=== PATIENT | female | born 1930 | race Caucasian/White ===

== ENCOUNTER → 2016-11-13 | Outpatient (REF) | payer MEDICARE, BC, OTHER ==
[~2016-11-13] MED LIST: ACET-654 PO; ACET650S3 PR; ACET65SU PR; ACET65TA OR; ALBU17IN2 IN; AMBI5TAB OR; ASPI1TAB6 PO; BISA10SU4 PR; BISA5TA OR; COLA100C2 OR; COUM1TAB19 PO; COUM2.5T11 PO; COUM2TAB10 PO; CRANBERRY PO; ENOX40SY SC; ENSULIQ2 PO; FLEETS ENEMA PR; FURO40TA2 PO; GLUC500T3 OR; GLUCTAB6 PO; Glucosamine Sulfate PO; IBUP600T OR; LACTAID PO; LASI20TA PO; MILKSUS OR; MIRALEX PO; MOM30SS PO; MOTR200T4 PO; MULTCAP PO; NAPR375T PO; OCEA0.654; POTA20TA4 PO; SENN8.6T63 PO; TETR250C OR; TUMS500C OR; VENTAER IN; VITA-121 PO; VITA200C OR; VITA500T OR; VITA50TA12 OR; VITAMIN D50000 UNT OR; VITAMIN D50000 UNT PO; WARF05TA PO; ZITH500T OR; [UNRECOGNIZED DRUG - REMARK] PO; fergon PO; vitamin B6 PO
[2016-11-13 16:53] LABS: PERCENT SATURATION 12.3 % (13.2-37.4)
== END ==
LOC: M LAB REF 16:24
PROVIDERS: ATTEND Internal Medicine
DX: D64.9 Anemia, unspecified (principal)

== ENCOUNTER → 2016-12-25 | Outpatient (REF) | payer MEDICARE, OTHER ==
[2016-12-25 19:34] LABS: PERCENT SATURATION 20.2 % (13.2-37.4)
== END ==
LOC: M LAB REF 17:00
PROVIDERS: ATTEND Internal Medicine
DX: D64.9 Anemia, unspecified (principal)

== ENCOUNTER → 2017-03-05 | Outpatient (REF) | payer MEDICARE, OTHER ==
[~2017-03-05] MED LIST changes: -ACET-654 PO; +ACET1TAB17 PO; -COUM2.5T11 PO; +COUM2.5T17 PO; -COUM2TAB10 PO; +COUM2TAB22 PO; +ENSULIQ10 PO; -ENSULIQ2 PO
[2017-03-05 19:23] LABS: PERCENT SATURATION 10.4 % (13.2-37.4)
== END ==
LOC: M LAB REF 16:56
PROVIDERS: ATTEND Internal Medicine
DX: D50.9 Iron deficiency anemia, unspecified (principal)

== ENCOUNTER → 2017-07-09 | Outpatient (REF) | payer MEDICARE, OTHER ==
[2017-07-09 19:10] LABS: PERCENT SATURATION 6.6 % (13.2-45.0)
== END ==
LOC: M LAB REF 17:41
PROVIDERS: ATTEND Internal Medicine
DX: D50.9 Iron deficiency anemia, unspecified (principal)

== ENCOUNTER → 2017-12-23 | Outpatient (REF) | payer MEDICARE, OTHER ==
[2017-12-23 18:03] LABS: FERRITIN 32 NG/ML (8-252); IRON (FE) 59 UG/DL (50-170); PERCENT SATURATION 19.8 % (13.2-45.0); TOTAL IRON BINDING CAPACITY 298 UG/DL (250-450)
== END ==
LOC: M LAB REF 16:52
DX: D50.9 Iron deficiency anemia, unspecified (principal)
CPT/HCPCS: 83550

== ENCOUNTER → 2018-06-17 | Outpatient (REF) | payer MEDICARE, OTHER ==
[2018-06-17 17:24] LABS: IRON (FE) 44 UG/DL (50-170); PERCENT SATURATION 16.7 % (13.2-45.0); TOTAL IRON BINDING CAPACITY 264 UG/DL (250-450)
== END ==
LOC: M LAB REF 16:35
DX: D50.9 Iron deficiency anemia, unspecified (principal)
CPT/HCPCS: 83550

== ENCOUNTER → 2018-12-08 | Outpatient (REF) | payer MEDICARE, OTHER ==
[~2018-12-08] MED LIST changes: -ACET1TAB17 PO; +ACET1TAB55 PO; -ENOX40SY SC; +LOVE1INJ SC
[2018-12-08 19:08] LABS: PERCENT SATURATION 26.9 % (13.2-45.0)
== END ==
LOC: M LAB REF 16:38
PROVIDERS: ATTEND Internal Medicine
DX: D50.9 Iron deficiency anemia, unspecified (principal)

== ENCOUNTER → 2019-01-27 | Outpatient (REF) ==
[2019-01-27 09:32] LABS: HEMATOCRIT 42.5 % (36.0-47.0); HEMOGLOBIN 13.8 g/dl (12.0-15.5); MEAN CORPUSCULAR HEMOGLOBIN 29.6 pg (27.0-33.0); MEAN CORPUSCULAR HGB CONC 32.5 g/dl (32.0-36.5); MEAN CORPUSCULAR VOLUME 91.2 fl (80.0-96.0); PLATELET COUNT, AUTOMATED 276 10^3/uL (150-450); RED BLOOD COUNT 4.66 10^6/uL (4.00-5.40); WHITE BLOOD COUNT 8.1 10^3/uL (4.0-10.0)
[2019-01-27 10:08] LABS: BLOOD UREA NITROGEN 33 MG/DL (7-18); CALCIUM LEVEL 9.2 MG/DL (8.8-10.2); CARBON DIOXIDE LEVEL 28 MEQ/L (21-32); CHLORIDE LEVEL 107 MEQ/L (98-107); CREATININE FOR GFR 0.74 MG/DL (0.55-1.30); GLOMERULAR FILTRATION RATE > 60.0 (>32); GLUCOSE, FASTING 106 MG/DL (70-100); POTASSIUM SERUM 4.6 MEQ/L (3.5-5.1); SODIUM LEVEL 141 MEQ/L (136-145)
== END ==
PROVIDERS: ATTEND Internal Medicine
DX: I50.9 Heart failure, unspecified (principal)

== ENCOUNTER → 2019-03-04 | Outpatient (REF) | payer MEDICARE, OTHER, BC ==
[2019-03-04 09:17] LABS: HEMATOCRIT 40.1 % (36.0-47.0); MEAN CORPUSCULAR HEMOGLOBIN 28.6 pg (27.0-33.0); MEAN CORPUSCULAR HGB CONC 32.4 g/dl (32.0-36.5); MEAN CORPUSCULAR VOLUME 88.3 fl (80.0-96.0); PLATELET COUNT, AUTOMATED 299 10^3/uL (150-450); RED BLOOD COUNT 4.54 10^6/uL (4.00-5.40); WHITE BLOOD COUNT 10.3 10^3/uL (4.0-10.0)
[2019-03-04 09:43] LABS: BLOOD UREA NITROGEN 32 MG/DL (7-18); CALCIUM LEVEL 8.9 MG/DL (8.8-10.2); CARBON DIOXIDE LEVEL 27 MEQ/L (21-32); CHLORIDE LEVEL 104 MEQ/L (98-107); CREATININE FOR GFR 0.73 MG/DL (0.55-1.30); GLOMERULAR FILTRATION RATE > 60.0 (>32); GLUCOSE, FASTING 167 MG/DL (70-100); NT-PRO BNP 1237 PG/ML (<450); POTASSIUM SERUM 4.3 MEQ/L (3.5-5.1); SODIUM LEVEL 139 MEQ/L (136-145)
== END ==
PROVIDERS: ATTEND Internal Medicine
DX: I50.9 Heart failure, unspecified (principal)

== ENCOUNTER → 2019-03-10 | Outpatient (REF) | payer BC, MEDICARE, OTHER ==
[2019-03-10 05:34] LABS: HEMATOCRIT 44.3 % (36.0-47.0); HEMOGLOBIN 14.4 g/dl (12.0-15.5); MEAN CORPUSCULAR HEMOGLOBIN 29.4 pg (27.0-33.0); MEAN CORPUSCULAR HGB CONC 32.5 g/dl (32.0-36.5); MEAN CORPUSCULAR VOLUME 90.4 fl (80.0-96.0); PLATELET COUNT, AUTOMATED 203 10^3/uL (150-450); WHITE BLOOD COUNT 4.1 10^3/uL (4.0-10.0)
[2019-03-10 05:42] LABS: APPEARANCE, URINE MANUAL TURBID (CLEAR); BILIRUBIN, URINE MANUAL NEGATIVE (NEGATIVE); COLOR, URINE MANUAL BROWN (YELLOW); GLUCOSE, URINE (UA) MANUAL NEGATIVE (NEGATIVE); KETONE, URINE MANUAL NEGATIVE (NEGATIVE); PROTEIN, URINE MANUAL 3+ mg/dL (NEGATIVE); SPECIFIC GRAVITY,URINE MANUAL 1.005 (1.002-1.035); UROBILINOGEN, URINE MANUAL NORMAL (NORMAL)
[2019-03-10 05:43] LABS: BLOOD URINE MANUAL POSITIVE (NEGATIVE); LEUKOCYTE ESTERASE, URINE MAN POSITIVE (NEGATIVE); NITRITE, URINE MANUAL NEGATIVE (NEGATIVE)
[2019-03-10 05:44] LABS: TRIPLE PHOSPHATE CRYSTAL,URINE MOD AMOUNT /hpf
[2019-03-10 05:45] LABS: AMORPHOUS SEDIMENT, URINE LARGE AMOUNT (NEGATIVE); BACTERIA, URINE LARGE AMOUNT; RBC, URINE 30-40 /hpf (0-3)
[2019-03-10 05:46] LABS: HYALINE CAST, URINE NONE SEEN /lpf (0-1); SQUAMOUS EPITHELIAL CELL URINE SMALL AMOUNT /hpf (SMALL AMT); WBC, URINE 15-20 /hpf (0-3)
[2019-03-10 05:47] LABS: MUCUS, URINE SMALL AMOUNT (NEGATIVE)
--- NOTE | 2019-03-10 16:21 | REP ---
Clinical: Cough. Comparison: 05/03/2014. Findings: Examination is severely limited by portable technique, underpenetration, and poor inspiratory effort. Basilar atelectasis and possible small pleural effusion cannot be excluded. Impression: Severely limited examination. Cannot exclude basilar atelectasis or small pleural effusion. Electronically Signed by Gómez Cantu MD 03/10/2019 04:13 P
== END ==
LOC: M LAB 00:30
PROVIDERS: ATTEND Internal Medicine
DX: R05 Cough (principal); R50.9 Fever, unspecified; E55.9 Vitamin D deficiency, unspecified; I50.32 Chronic diastolic (congestive) heart failure

== ENCOUNTER → 2019-03-11 | Outpatient (REF) | payer MEDICARE ==
[~2019-03-11] MED LIST changes: +ASPI-161 PO; +BISA10SU27 PR; +CERTTAB8 PO; +CIPR-250 PO; +D200CAP3 PO; +ENSULIQ8 PO; +FERR325T16 PO; +FLAG500T PO; +FLEEENE12 PR; +HM C500T3 PO; +MELA5TAB7 PO; +MILKSUS3 PO; +PANT40TA3 PO; +POTA1TAB14 PO; +SENN1TAB41 PO; +SUCR10SS PO; +VESI5TAB2 PO; +VITA500C PO
[2019-03-11 11:26] LABS: HEMATOCRIT 37.1 % (36.0-47.0); MEAN CORPUSCULAR HEMOGLOBIN 29.4 pg (27.0-33.0); MEAN CORPUSCULAR HGB CONC 32.6 g/dl (32.0-36.5); MEAN CORPUSCULAR VOLUME 90.3 fl (80.0-96.0); PLATELET COUNT, AUTOMATED 214 10^3/uL (150-450); RED BLOOD COUNT 4.11 10^6/uL (4.00-5.40)
[2019-03-11 11:37] LABS: HEMOGLOBIN 12.1 g/dl (12.0-15.5)
[2019-03-11 12:06] LABS: BLOOD UREA NITROGEN 48 MG/DL (7-18); CALCIUM LEVEL 8.5 MG/DL (8.8-10.2); CARBON DIOXIDE LEVEL 27 MEQ/L (21-32); CHLORIDE LEVEL 103 MEQ/L (98-107); CREATININE FOR GFR 0.83 MG/DL (0.55-1.30); GLOMERULAR FILTRATION RATE > 60.0 (>32); GLUCOSE, FASTING 166 MG/DL (70-100); POTASSIUM SERUM 4.3 MEQ/L (3.5-5.1); SODIUM LEVEL 138 MEQ/L (136-145)
== END ==
PROVIDERS: ATTEND Internal Medicine
DX: R50.9 Fever, unspecified (principal)

== ENCOUNTER → 2019-03-12 | Outpatient (REF) | payer MEDICARE ==
[2019-03-12 07:15] LABS: HEMATOCRIT 35.2 % (36.0-47.0); HEMOGLOBIN 11.6 g/dl (12.0-15.5); MEAN CORPUSCULAR HEMOGLOBIN 29.6 pg (27.0-33.0); MEAN CORPUSCULAR VOLUME 89.8 fl (80.0-96.0); PLATELET COUNT, AUTOMATED 227 10^3/uL (150-450); RED BLOOD COUNT 3.92 10^6/uL (4.00-5.40); WHITE BLOOD COUNT 12.6 10^3/uL (4.0-10.0)
[2019-03-12 07:32] LABS: BLOOD UREA NITROGEN 40 MG/DL (7-18); CALCIUM LEVEL 8.7 MG/DL (8.8-10.2); CARBON DIOXIDE LEVEL 30 MEQ/L (21-32); CHLORIDE LEVEL 101 MEQ/L (98-107); CREATININE FOR GFR 0.76 MG/DL (0.55-1.30); GLOMERULAR FILTRATION RATE > 60.0 (>32); GLUCOSE, FASTING 177 MG/DL (70-100); POTASSIUM SERUM 4.3 MEQ/L (3.5-5.1); SODIUM LEVEL 139 MEQ/L (136-145)
== END ==
PROVIDERS: ATTEND Internal Medicine
DX: R50.9 Fever, unspecified (principal)

== ENCOUNTER → 2019-03-13 | Outpatient (REF) | payer MEDICARE ==
[~2019-03-13] MED LIST changes: -ASPI-161 PO; -BISA10SU27 PR; -CERTTAB8 PO; -CIPR-250 PO; -D200CAP3 PO; -ENSULIQ8 PO; -FERR325T16 PO; -FLAG500T PO; -FLEEENE12 PR; -HM C500T3 PO; -MELA5TAB7 PO; -MILKSUS3 PO; -PANT40TA3 PO; -POTA1TAB14 PO; -SENN1TAB41 PO; -SUCR10SS PO; -VESI5TAB2 PO; -VITA500C PO
[2019-03-13 07:13] LABS: HEMOGLOBIN 11.3 g/dl (12.0-15.5); MEAN CORPUSCULAR HEMOGLOBIN 29.1 pg (27.0-33.0); MEAN CORPUSCULAR HGB CONC 32.3 g/dl (32.0-36.5); MEAN CORPUSCULAR VOLUME 90.2 fl (80.0-96.0); PLATELET COUNT, AUTOMATED 246 10^3/uL (150-450); RED BLOOD COUNT 3.88 10^6/uL (4.00-5.40); WHITE BLOOD COUNT 9.5 10^3/uL (4.0-10.0)
[2019-03-13 09:26] LABS: BLOOD UREA NITROGEN 36 MG/DL (7-18); CALCIUM LEVEL 8.4 MG/DL (8.8-10.2); CARBON DIOXIDE LEVEL 31 MEQ/L (21-32); CHLORIDE LEVEL 102 MEQ/L (98-107); CREATININE FOR GFR 0.64 MG/DL (0.55-1.30); GLOMERULAR FILTRATION RATE > 60.0 (>32); GLUCOSE, FASTING 144 MG/DL (70-100); POTASSIUM SERUM 4.1 MEQ/L (3.5-5.1); SODIUM LEVEL 138 MEQ/L (136-145)
== END ==
PROVIDERS: ATTEND Internal Medicine
DX: N39.0 Urinary tract infection, site not specified (principal)

== ENCOUNTER 2019-03-17 22:27 | Inpatient (IN) | payer MEDICARE, BC, OTHER ==
[~2019-03-17] VITALS: Ht 167.6 cm; Wt 79.5 kg
[~2019-03-17 22:27] MED LIST changes: -ASPI-161 PO; -BISA10SU27 PR; -CERTTAB8 PO; -D200CAP3 PO; -ENSULIQ8 PO; -FERR325T16 PO; -FLEEENE12 PR; -HM C500T3 PO; -MELA5TAB7 PO; -MILKSUS3 PO; -POTA1TAB14 PO; -SENN1TAB41 PO; -VESI5TAB2 PO; -VITA500C PO
[2019-03-17] MEDS ORDERED: ENSULIQ8 PO (22:51)
[2019-03-17] MEDS ORDERED: ASPI-161 PO (22:51)
[2019-03-17] MEDS ORDERED: D200CAP3 PO (22:51)
[2019-03-17] MEDS ORDERED: POTA1TAB14 PO (22:51)
[2019-03-17] MEDS ORDERED: VESI5TAB2 PO (22:51)
[2019-03-17] MEDS ORDERED: HM C500T3 PO (22:51)
[2019-03-17] MEDS ORDERED: MELA5TAB7 PO (22:51)
[2019-03-17] MEDS ORDERED: FERR325T16 PO (22:51)
[2019-03-17] MEDS ORDERED: CERTTAB8 PO (22:51)
[2019-03-17] MEDS ORDERED: [UNRECOGNIZED DRUG - CODE] PO (22:51)
[2019-03-17] MEDS ORDERED: BISA10SU27 PR (22:57)
[2019-03-17] MEDS ORDERED: MILKSUS3 PO (22:57)
[2019-03-17] MEDS ORDERED: SENN1TAB41 PO (22:57)
[2019-03-17] MEDS ORDERED: FLEEENE12 PR (22:57)
[2019-03-17 23:18] LABS: BASO # 0.1 10^3/uL (0.0-0.2); BASO % 0.6 % (0.0-1.0); EOS # 0.3 10^3/uL (0.0-0.50); EOS % 2.3 % (0.0-3.0); HEMATOCRIT 39.8 % (36.0-47.0); HEMOGLOBIN 12.8 g/dl (12.0-15.5); LYMPH # 1.6 10^3/uL (1.5-4.5); MEAN CORPUSCULAR HEMOGLOBIN 28.8 pg (27.0-33.0); MEAN CORPUSCULAR HGB CONC 32.2 g/dl (32.0-36.5); MEAN CORPUSCULAR VOLUME 89.6 fl (80.0-96.0); MONO % 7.2 % (0.0-5.0); NEUTROPHILS # 9.7 10^3/uL (1.8-7.7); NEUTROPHILS % 73.3 % (36.0-66.0); PLATELET COUNT, AUTOMATED 406 10^3/uL (150-450); RED BLOOD COUNT 4.44 10^6/uL (4.00-5.40); WHITE BLOOD COUNT 13.3 10^3/uL (4.0-10.0)
[2019-03-17 23:36] LABS: ALBUMIN 2.4 GM/DL (3.2-5.2); ALT/SGPT 17 U/L (12-78); BILIRUBIN,DIRECT 0.1 MG/DL (0.0-0.2); BILIRUBIN,TOTAL 0.3 MG/DL (0.2-1.0); BLOOD UREA NITROGEN 31 MG/DL (7-18); CALCIUM LEVEL 9.2 MG/DL (8.8-10.2); CARBON DIOXIDE LEVEL 34 MEQ/L (21-32); CHLORIDE LEVEL 102 MEQ/L (98-107); CREATININE FOR GFR 0.72 MG/DL (0.55-1.30); GLOMERULAR FILTRATION RATE > 60.0 (>32); GLUCOSE, FASTING 126 MG/DL (70-100); POTASSIUM SERUM 4.3 MEQ/L (3.5-5.1); SODIUM LEVEL 140 MEQ/L (136-145); TOTAL PROTEIN 6.5 GM/DL (6.4-8.2)
[2019-03-17 23:37] LABS: LIPASE 135 U/L (73-393)
[2019-03-18] MEDS ORDERED: NS 500 ML IV ONE (00:15)
[2019-03-18 00:24] LABS: INR 1.06; PROTHROMBIN TIME 13.5 SECONDS (11.8-14.0)
[2019-03-18] MEDS ORDERED: BISACODYL 10 MG SUPP PR PRN (02:30)
[2019-03-18] MEDS ORDERED: ACETAMINOPHEN 325 MG TAB PO PRN (02:30)
--- NOTE | 2019-03-18 02:57 | HPEPDOC ---
General Date of Admission Mar 18, 2019 at 02:26 Date of Service: Mar 18, 2019 Chief Complaint The patient is a 88-year-old female admitted with a reason for visit of Rectal Bleeding. 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 Pt was found to have bright red blood per rectum when being transferred. Pt apparently was treated for uti earlier this week. Otherwise pt is asymptomatic. No sob, dizziness, n/v, or abd pain. Full ROS was performed and negative except as above Home Medications Scheduled Aspirin (Aspirin EC) 81 Mg Tablet.dr, 81 MG PO DAILY, (Reported) Cholecalciferol (Vitamin D3) (Vitamin D3) 2,000 Unit Capsule, 2,000 UNIT PO Q2D, (Reported) Cranberry Fruit Extract (Cranberry) 500 Mg Tablet, 2,000 MG PO DAILY, (Reported) Ferrous Gluconate (Ferrous Gluconate) 324 Mg Tablet, 324 MG PO DAILY, (Reported) Furosemide (Furosemide) 40 Mg Tab, 40 MG PO DAILY, (Reported) Lactose-Reduced Food (Ensure Liquid) 237 Ml Liquid, 237 ML PO DAILY, (Reported) TAKES AT 1200 Melatonin (Melatonin) 5 Mg Tablet, 5 MG PO QHS, (Reported) Multivit-Min/FA/Lycopen/Lutein (Certavite Sr-Antioxidant Tab) 1 Each Tablet, 1 TAB PO DAILY, (Reported) Potassium Chloride (Potassium Chloride) 20 Meq Tablet.er, 20 MEQ PO DAILY, (Reported) Sennosides/Docusate Sodium (Senna-S Tablet) 1 Each Tablet, 1 TAB PO QHS, (Reported) Solifenacin Succinate (Vesicare) 5 Mg Tablet, 5 MG PO DAILY, (Reported) Scheduled PRN Acetaminophen (Acetaminophen) 325 Mg Tab, 650 MG PO Q4HP PRN for PAIN OR FEVER, (Reported) Bisacodyl (Bisacodyl) 10 Mg Supp.rect, 10 MG OR DAILY PRN for CONSTIPATION, (Reported) Magnesium Hydroxide (Milk of Magnesia) 400 Mg/5 Ml Oral.susp, 2,400 MG PO DAILY PRN for CONSTIPATION, (Reported) Sodium Phosphate,[place]-Dibasic (Fleet Enema) 133 Ml Enema, 1 PABLO OR DAILY PRN for CONSTIPATION, (Reported) Allergies Coded Allergies: Penicillins (Verified Allergy, Intermediate, Hives and Rash, 03/17/19) Sulfa (Sulfonamide Antibiotics) (Verified Allergy, Intermediate, Rash and Hives, 03/17/19) morphine (Verified Allergy, Unknown, Nausea, 03/17/19) Past Medical History Medical History pe, mi, guillan barre, kyphosis Family History Significant Family History: No pertinent family hx Social History * Smoker: former Smoker A-FIB/CHADSVASC A-FIB History Current/History of A-Fib/PAF?: No Current PO Anticoag Therapy: No Age/Risk Factor Scoring CHADSVASC: CHADSVASC Response (Comments) Value Age Risk Factor Age >/= 75 years old 2 Gender Risk Factor Female 1 Hx of CHF No 0 Hx of HTN No 0 Hx of Stroke/TIA/or VTE No 0 Hx of Diabetes No 0 Hx of Vascular Disease No 0 Total 3 Treatment Treatment ordered: NONE Reason Anticoagulant not given: Not indicated/[id number] Physical Examination General Exam: Positive: Alert, Cooperative, No Acute Distress Eye Exam: Positive: PERRLA, Conjunctiva & lids normal, EOMI; Negative: Sclera icteric ENT Exam: Positive: Atraumatic, Mucous membr. moist/pink, Pharynx Normal Neck Exam: Positive: Supple; Negative: JVD, thyromegaly Chest Exam: Positive: Clear to auscultation, Normal air movement Heart Exam: Positive: Tachycardic, Regular Rhythm, Normal S1, Normal S2; Negative: Murmurs, Rubs Telemetry: Positive: Sinus, Tachycardia Abdomen Exam: Positive: Normal bowel sounds, Soft; Negative: Tenderness, Hepatospenomegaly Extremity Exam: Positive: Normal pulses; Negative: Clubbing, Cyanosis, Edema Skin Exam: Positive: Nl turgor and temperature; Negative: Breakdown, Lesion Neuro Exam: Positive: Normal Gait, Normal Speech, Cranial Nerves 3-12 NL Psych Exam: Positive: Mental status NL, Mood NL, Oriented x 3 Vital Signs Vital Signs Date Time Temp Pulse Resp B/P (MAP) Pulse Ox O2 Delivery O2 Flow Rate FiO2 03/18/19 01:15 96.9 100 18 123/62 (82) 91 Room Air Laboratory Data Labs 24H Laboratory Tests 2 03/17/19 23:01: Immature Granulocyte % (Auto) 4.6H, White Blood Count 13.3H, Red Blood Count 4.44, Hemoglobin 12.8, Hematocrit 39.8, Mean Corpuscular Volume 89.6, Mean Corpuscular Hemoglobin 28.8, Mean Corpuscular Hemoglobin Concent 32.2, Red Cell Distribution Width 14.6H, Platelet Count 406, Neutrophils (%) (Auto) 73.3H, Lymphocytes (%) (Auto) 12.0L, Monocytes (%) (Auto) 7.2H, Eosinophils (%) (Auto) 2.3, Basophils (%) (Auto) 0.6, Neutrophils # (Auto) 9.7H, Lymphocytes # (Auto) 1.6, Monocytes # (Auto) 1.0H, Eosinophils # (Auto) 0.3, Basophils # (Auto) 0.1, Nucleated Red Blood Cells % (auto) 0.0, Anion Gap 4L, Glomerular Filtration Rate > 60.0, Calcium Level 9.2, Aspartate Amino Transf (AST/SGOT) 18, Alanine Aminotransferase (ALT/SGPT) 17, Alkaline Phosphatase 87, Total Bilirubin 0.3, Direct Bilirubin 0.1, Total Protein 6.5, Albumin 2.4L, Albumin/Globulin Ratio 0.59L, Lipase 135 03/18/19 00:14: Prothrombin Time 13.5, Prothromb Time International Ratio 1.06, Activated Partia l Thromboplast Time 27.0 CBC/BMP Laboratory Tests 03/17/19 23:01 Red Blood Count 4.44, Mean Corpuscular Volume 89.6, Mean Corpuscular Hemoglobin 28.8, Mean Corpuscular Hemoglobin Concent 32.2, Red Cell Distribution Width 14.6 H, Neutrophils (%) (Auto) 73.3 H, Lymphocytes (%) (Auto) 12.0 L, Monocytes (%) (Auto) 7.2 H, Eosinophils (%) (Auto) 2.3, Basophils (%) (Auto) 0.6, Neutrophils # (Auto) 9.7 H, Lymphocytes # (Auto) 1.6, Monocytes # (Auto) 1.0 H, Eosinophils # (Auto) 0.3, Basophils # (Auto) 0.1 Assessment/Plan 88f p/w BRBPR possible gi bleeding not currently anemic trend h/h hold asa gi eval in am monitor hemodynamics npo dchf euvolemic hold lasix Plan / VTE VTE Prophylaxis Ordered?: Yes VTE Exclusion Mechanical Proph: N/A:VTE Prophy Ordered VTE Exclusion Pharmacological: Hemorrhage THOMPSON MURRY MD Mar 18, 2019 02:57
[2019-03-18] MEDS: D5W/0.45% SODIUM CHLORIDE 1,000 ML IV SCH ×2 (03:51→18:28)
[2019-03-18 08:42] LABS: HEMATOCRIT 34.4 % (36.0-47.0); HEMOGLOBIN 11.2 g/dl (12.0-15.5); MEAN CORPUSCULAR HEMOGLOBIN 29.6 pg (27.0-33.0); MEAN CORPUSCULAR HGB CONC 32.6 g/dl (32.0-36.5); PLATELET COUNT, AUTOMATED 346 10^3/uL (150-450); RED BLOOD COUNT 3.78 10^6/uL (4.00-5.40); WHITE BLOOD COUNT 11.2 10^3/uL (4.0-10.0)
[2019-03-18 09:21] LABS: ALBUMIN 1.9 GM/DL (3.2-5.2); ALT/SGPT 13 U/L (12-78); BILIRUBIN,TOTAL 0.4 MG/DL (0.2-1.0); BLOOD UREA NITROGEN 27 MG/DL (7-18); CALCIUM LEVEL 8.2 MG/DL (8.8-10.2); CARBON DIOXIDE LEVEL 28 MEQ/L (21-32); CHLORIDE LEVEL 105 MEQ/L (98-107); CREATININE FOR GFR 0.54 MG/DL (0.55-1.30); GLOMERULAR FILTRATION RATE > 60.0 (>32); GLUCOSE, FASTING 169 MG/DL (70-100); POTASSIUM SERUM 3.8 MEQ/L (3.5-5.1); SODIUM LEVEL 139 MEQ/L (136-145); TOTAL PROTEIN 5.8 GM/DL (6.4-8.2)
[2019-03-18] MEDS ORDERED: ISOVUE-370 76% 100ML VIAL (Q9967) As Ordered ONE (09:33)
--- NOTE | 2019-03-18 09:49 | REP ---
CT ABDOMEN AND PELVIS WITHOUT CONTRAST: CT abdomen and pelvis performed without oral or IV contrast. Sagittal and coronal reconstruction images are performed. There are mild patchy bibasilar consolidative opacities compatible with mild bibasilar atelectasis/infiltrate. There is a moderate hiatal hernia. Liver, spleen, adrenals, and pancreas are grossly unremarkable. There is a punctate calcification in the left renal collecting system inferiorly. There is no hydroureteronephrosis. There is moderate atherosclerotic calcification of the abdominal aorta without aneurysm. The is no adenopathy. There is no free air or free fluid. There is extensive sigmoid diverticulosis. There may be some degree of thickening of the distal rectosigmoid colon, with mild surrounding perirectal edema predominantly posteriorly anterior to the sacrum. There is no other area of definite bowel wall thickening. No pelvic mass is seen. There are small diverticula of the bladder. There also appear to be a few tiny calculi in the dependent portion of the urinary bladder. There are degenerative changes of the spine. IMPRESSION: Mild patchy bibasilar atelectasis/infiltrate. Moderate hiatal hernia. Possible mild thickening of a portion of the distal rectosigmoid colon with adjacent edema in the perirectal fat posteriorly, nonspecific and possibly due to an area of colitis. Early neoplasm cannot be excluded. No free air or free fluid. Otherwise, the sigmoid colon demonstrates multiple innumerable diverticula. Electronically Signed by Siddharth Perez MD 03/19/2019 12:28 A
--- NOTE | 2019-03-18 10:21 | REP ---
CT ANGIOGRAM OF THE CHEST: TECHNIQUE: Axial contrast enhanced images from the thoracic inlet to the upper abdomen using 100 mL Isovue 370 intravenous contrast material with multiplanar reformations. Pulmonary artery branches supplying the left upper and lower lobes demonstrate filling defects compatible with pulmonary emboli. Pulmonary emboli are also seen in pulmonary arterial branches supplying the right lower lobe. There is atherosclerotic calcification of the thoracic aorta without aneurysm. There is no cardiomegaly. There is no pleural or pericardial effusion. I do not see significant mediastinal, hilar, or chest wall lymphadenopathy. There is a moderate hiatal hernia. The lungs show dependent patchy atelectasis/infiltrate inferiorly bilaterally. There are degenerative changes of the spine. IMPRESSION: Bilateral pulmonary emboli. Bibasilar atelectasis/infiltrate inferiorly in the lung bases. Electronically Signed by Siddharth Perez MD 03/19/2019 12:29 A
[2019-03-18] MEDS: FERROUS GLUCONATE 324 MG TAB PO SCH (10:36)
[2019-03-18] MEDS ORDERED: HEPARIN DRIP 25,000 UNITS in IV 1 EA IV SCH (11:02)
[2019-03-18] MEDS ORDERED: HEPARIN SOD (PORCINE) 5000 UNITS/ML VIAL IV PRN (11:15)
--- NOTE | 2019-03-18 12:00 | CR.PDOC ---
General Date of Consultation: Mar 18, 2019 Referring Provider: BREANNA GUADALUPE MD Consultation Primary Physician/hospitalist: Dr. 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 The patient herself says that she does not have the ability to see her stool so she is unsure how long this has occurred for, however she thinks [facility] at the jail would have told her if it did prior to this. She denies any nausea, vomiting, no abdominal discomfort, she reports normal bowel movements, no diarrhea or constipation to her knowledge, she states she feels well albeit a little fatigued. She denies early satiety, has never experienced food or liquid becoming stuck in her throat or chest, she has no sick contacts she knows of. She denies any changes to her weight and states her appetite has been good. ALLERGIES: Please see below. HOME MEDICATIONS: Please see below. ROS: GI: As stated above in HPI CVS: NO chest pain nor syncope nor palpitations RS: No SOB or wheezing nor cough : Denies hematuria, no burning sensation when she urinates ENT: No jaundice nor photophobia Home medications reviewed: she has history of PE in the past, 2013, and was on anticoagulation at that time but later stopped.. 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) SURGICAL HISTORY: bunion and left lower extremity orthopedic surgery many years ago She has not had any prior endoscopies or colonoscopies SOCIAL HISTORY: [facility] resident, denies smoking, IVDU or ETOH use Exam: Vitals: reviewed General: AAOx3, pleasant and conversant, NAD HEENT: No pallor and no icterus, no cervical lymph nodes Chest: CTA b/l, no rales, rhonchi or wheezing appreciated Cardiovascular: Normal s1 and s2, no murmurs, rubs or gallops Abdomen: NABSX4, soft, tender in LLQ to palpation, no rebound ridgity or guarding, no hepatosplenomegaly appreciated, does not appear distended PROPERTY CLAIM REP: No focal motor or sensory deficits appreciated LABORATORY DATA and IMAGING reviewed Noted bilateral new PE on CT angiography. Impression: 88 Year old female patient with multiple medical comorbidities, with episode of rectal bleeding and noted to have Acute bilateral pulmonary embolism, with stable H/H, and and not requiring blood transfusion at this point in time, CT ab/pelvis did show thickening in the distal rectosigmoid colon with edema, possibly suggesting colitis although early neoplasm could not be ruled out and many sigmoid colonic diverticula --DDx-- Needs further evaluation for etiology of Gi bleeding. Recommendations: -- In view of acute bilateral PE and due to patient multiple comobidities patient will not be a candidate for anesthesia for any endoscopic procedures. -- Discussed the risks, benefits and alternative of endoscopic work up at this time. -- Patient verbalized undeerstanding and did nt want to pursue endoscopic procedures. -- Anticoagulation based on the risks and benefits at this time -- Patient is also being planned for IVC filter by Vascular surgery. -- If patient has overt active GI bleeding, please consider IR guided embolization. -- Elective Colonoscopy after acute and active issues are stabilized. -- Recall GI if any changein status. Plan of care discussed with patient and primary team. Vital Signs/I&O Vital Signs Date Time Temp Pulse Resp B/P (MAP) Pulse Ox O2 Delivery O2 Flow Rate FiO2 03/18/19 07:46 96.1 03/18/19 07:00 89 120/61 (80) 91 Room Air 03/18/19 05:45 18 I&O- Last 24 Hours up to 6 AM 03/18/19 05:59 Intake Total 500 ml Balance 500 ml Laboratory Data Labs 24H Laboratory Tests 2 03/17/19 23:01: Immature Granulocyte % (Auto) 4.6H, White Blood Count 13.3H, Red Blood Count 4.44, Hemoglobin 12.8, Hematocrit 39.8, Mean Corpuscular Volume 89.6, Mean Corpuscular Hemoglobin 28.8, Mean Corpuscular Hemoglobin Concent 32.2, Red Cell Distribution Width 14.6H, Platelet Count 406, Neutrophils (%) (Auto) 73.3H, Lymphocytes (%) (Auto) 12.0L, Monocytes (%) (Auto) 7.2H, Eosinophils (%) (Auto) 2.3, Basophils (%) (Auto) 0.6, Neutrophils # (Auto) 9.7H, Lymphocytes # (Auto) 1.6, Monocytes # (Auto) 1.0H, Eosinophils # (Auto) 0.3, Basophils # (Auto) 0.1, Nucleated Red Blood Cells % (auto) 0.0, Anion Gap 4L, Glomerular Filtration Rate > 60.0, Calcium Level 9.2, Aspartate Amino Transf (AST/SGOT) 18, Alanine Aminotransferase (ALT/SGPT) 17, Alkaline Phosphatase 87, Total Bilirubin 0.3, Direct Bilirubin 0.1, Total Protein 6.5, Albumin 2.4L, Albumin/Globulin Ratio 0.59L, Lipase 135 03/18/19 00:14: Prothrombin Time 13.5, Prothromb Time International Ratio 1.06, Activated Partial Thromboplast Time 27.0 03/18/19 08:32: Nucleated Red Blood Cells % (auto) 0.0, Anion Gap 6L, Glomerular Filtration Rate > 60.0, Calcium Level 8.2L, Aspartate Amino Transf (AST/SGOT) 15, Alanine Aminotransferase (ALT/SGPT) 13, Alkaline Phosphatase 62, Total Bilirubin 0.4, Total Protein 5.8L, Albumin 1.9#L, Albumin/Globulin Ratio 0.49L, Blood Urea Nitrogen 27H, Creatinine 0.54L, Sodium Level 139, Potassium Level 3.8, Chloride Level 105, Carbon Dioxide Level 28 CBC/BMP Laboratory Tests 03/17/19 23:01 Red Blood Count 4.44, Mean Corpuscular Volume 89.6, Mean Corpuscular Hemoglobin 28.8, Mean Corpuscular Hemoglobin Concent 32.2, Red Cell Distribution Width 14.6 H, Neutrophils (%) (Auto) 73.3 H, Lymphocytes (%) (Auto) 12.0 L, Monocytes (%) (Auto) 7.2 H, Eosinophils (%) (Auto) 2.3, Basophils (%) (Auto) 0.6, Neutrophils # (Auto) 9.7 H, Lymphocytes # (Auto) 1.6, Monocytes # (Auto) 1.0 H, Eosinophils # (Auto) 0.3, Basophils # (Auto) 0.1 03/18/19 08:32 Red Blood Count 3.78 L, Mean Corpuscular Volume 91.0, Mean Corpuscular Hemoglobin 29.6, Mean Corpuscular Hemoglobin Concent 32.6, Red Cell Distribution Width 14.6 H, Calcium Level 8.2 L, Aspartate Amino Transf (AST/SGOT) 15, Alanine Aminotransferase (ALT/SGPT) 13, Alkaline Phosphatase 62, Total Bilirubin 0.4, Total Protein 5.8 L, Albumin 1.9 #L Allergies Coded Allergies: Penicillins (Verified Allergy, Intermediate, Hives and Rash, 03/17/19) Sulfa (Sulfonamide Antibiotics) (Verified Allergy, Intermediate, Rash and Hives, 03/17/19) morphine (Verified Allergy, Unknown, Nausea, 03/17/19) Home Medications Scheduled Aspirin (Aspirin EC) 81 Mg Tablet.dr, 81 MG PO DAILY, (Reported) Cholecalciferol (Vitamin D3) (Vitamin D3) 2,000 Unit Capsule, 2,000 UNIT PO Q2D, (Reported) Cranberry Fruit Extract (Cranberry) 500 Mg Tablet, 2,000 MG PO DAILY, (Reported) Ferrous Gluconate (Ferrous Gluconate) 324 Mg Tablet, 324 MG PO DAILY, (Reported) Furosemide (Furosemide) 40 Mg Tab, 40 MG PO DAILY, (Reported) Lactose-Reduced Food (Ensure Liquid) 237 Ml Liquid, 237 ML PO DAILY, (Reported) TAKES AT 1200 Melatonin (Melatonin) 5 Mg Tablet, 5 MG PO QHS, (Reported) Multivit-Min/FA/Lycopen/Lutein (Certavite Sr-Antioxidant Tab) 1 Each Tablet, 1 TAB PO DAILY, (Reported) Potassium Chloride (Potassium Chloride) 20 Meq Tablet.er, 20 MEQ PO DAILY, (Reported) Sennosides/Docusate Sodium (Senna-S Tablet) 1 Each Tablet, 1 TAB PO QHS, (Reported) Solifenacin Succinate (Vesicare) 5 Mg Tablet, 5 MG PO DAILY, (Reported) Scheduled PRN Acetaminophen (Acetaminophen) 325 Mg Tab, 650 MG PO Q4HP PRN for PAIN OR FEVER, (Reported) Bisacodyl (Bisacodyl) 10 Mg Supp.rect, 10 MG [place] DAILY PRN for CONSTIPATION, (Reported) Magnesium Hydroxide (Milk of Magnesia) 400 Mg/5 Ml Oral.susp, 2,400 MG PO DAILY PRN for CONSTIPATION, (Reported) Sodium Phosphate,[place]-Dibasic (Fleet Enema) 133 Ml Enema, 1 PABLO [place] DAILY PRN for CONSTIPATION, (Reported) GME ATTESTATION GME ATTESTATION My faculty preceptor for this patient encounter was physically present during the encounter and was fully available. All aspects of the patient interview, examination, medical decision making process, and medical care plan development were reviewed and approved by the faculty preceptor. The faculty preceptor is aware and concurs with the plan as stated in the body of this note and will attest to such by his/her cosignature. BRAYAN JONES DO Mar 18, 2019 12:00 ISAIAH GAN MD Mar 19, 2019 17:26
--- NOTE | 2019-03-18 12:09 | CR.PDOC ---
General Date of Consultation: Mar 18, [address] Parra HPI: 88 year old F with a past medical history significant for pulmonary embolism 2013, currently on aspirin 81 mg daily admitted 03/18/19 for rectal bleeding as per hospitalist service. The patient's daughter is at the bedside and provides additional history. The patient was noted to have BRBPR yesterday in her brief and was sent to the emergency department. Gastroenterology consultation pending. She reports that in 2013 the patient had a lower extremity fracture status post repair went to [facility] for rehabilitation in 2 weeks later was diagno sed with pulmonary embolism. The patient was initially placed on Coumadin later changed to Eliquis. Anticoagulation was stopped 2014. The patient had ultrasound completed of left lower extremity 03/17/19 indicating DVT with CTA chest 03/18/19 indicating bilateral PE. Vascular surgery is consulted for consideration of IVC filter. The patient is a resident of [facility]. 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 She was apparently recently treated for UTI. Her daughter states that she intermittently has shortness of breath. Denies any fevers, chills, Headache, Chest Pain, palpitations, abdominal pain, N/V/D or changes in bowel habits. 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 Iron deficiency Lactose intolerance OAB Chronic constipation PSHX: Right knee arthroplasty Left tib-fib ORIF Cystoscopy SOCHX: Tobacco use: Former smoker ETOH: Denies FAMHX: Denies family history of clotting disorder ROS: 10 point review of system reviewed and unremarkable other than noted in HPI. PE: GEN: 88yoF appears stated age. Well-nourished, well developed. No acute distress currently. Alert and oriented x 3. Pleasant, interactive. HEENT: Normocephalic, atraumatic. No facial asymmetry. Moist mucous membranes. CHEST: Regular rate and rhythm, +S1, +S2 LUNGS: Decreased breath sounds but clear bilaterally. No wheezes, rales, or rhonchi. Breathing appears symmetric and easy. ABD: Round, soft, non-tender, non-distended. +Bowel sounds throughout. EXT: Bilateral feet are warm to touch. Good capillary refill. No wounds on the feet however there is a wound noted on the pretibial area of the left lower extremity which the daughter states occurred from bumping her chair. Lower extremity venous ultrasound Nonocclusive thrombus left common femoral, superficial femoral, and popliteal veins. Electronically Signed by Siddharth Perez MD 03/18/2019 10:51 A CTA chest Bilateral pulmonary emboli. Bibasilar atelectasis/infiltrate inferiorly in the lung bases. Unreviewed DD: Siddharth Preez MD, MD 03/18/19 1004 A&P: 1. Left lower extremity nonocclusive DVT with bilateral PE. Pt with h/o previous DVT 2013. PT/PTT 03/18/19. Add Hypercoagulable GAYTAN. The patient is also currently being treated for possible GI bleeding. G astroenterology consultation pending. 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 The patient is unable to be placed on anticoagulant at this time. The patient is reviewed and examined as per Dr. Parra. Plan is for IVC filter placement 03/18/19. Vital Signs/I&O Vital Signs Date Time Temp Pulse Resp B/P (MAP) Pulse Ox O2 Delivery O2 Flow Rate FiO2 03/18/19 07:46 96.1 03/18/19 07:00 89 120/61 (80) 91 Room Air 03/18/19 05:45 18 I&O- Last 24 Hours up to 6 AM 03/18/19 06:00 Intake Total 500 ml Balance 500 ml Laboratory Data Labs 24H Laboratory Tests 2 03/17/19 23:01: Immature Granulocyte % (Auto) 4.6H, White Blood Count 13.3H, Red Blood Count 4.44, Hemoglobin 12.8, Hematocrit 39.8, Mean Corpuscular Volume 89.6, Mean Corpuscular Hemoglobin 28.8, Mean Corpuscular Hemoglobin Concent 32.2, Red Cell Distribution Width 14.6H, Platelet Count 406, Neutrophils (%) (Auto) 73.3H, Lymphocytes (%) (Auto) 12.0L, Monocytes (%) (Auto) 7.2H, Eosinophils (%) (Auto) 2.3, Basophils (%) (Auto) 0.6, Neutrophils # (Auto) 9.7H, Lymphocytes # (Auto) 1.6, Monocytes # (Auto) 1.0H, Eosinophils # (Auto) 0.3, Basophils # (Auto) 0.1, Nucleated Red Blood Cells % (auto) 0.0, Anion Gap 4L, Glomerular Filtration Rate > 60.0, Calcium Level 9.2, Aspartate Amino Transf (AST/SGOT) 18, Alanine Aminotransferase (ALT/SGPT) 17, Alkaline Phosphatase 87, Total Bilirubin 0.3, Direct Bilirubin 0.1, Total Protein 6.5, Albumin 2.4L, Albumin/Globulin Ratio 0.59L, Lipase 135 03/18/19 00:14: Prothrombin Time 13.5, Prothromb Time International Ratio 1.06, Activated Partial Thromboplast Time 27.0 03/18/19 08:32: Nucleated Red Blood Cells % (auto) 0.0, Anion Gap 6L, Glomerular Filtration Rate > 60.0, Calcium Level 8.2L, Aspartate Amino Transf (AST/SGOT) 15, Alanine Aminotransferase (ALT/SGPT) 13, Alkaline Phosphatase 62, Total Bilirubin 0.4, Total Protein 5.8L, Albumin 1.9#L, Albumin/Globulin Ratio 0.49L, Blood Urea Nitrogen 27H, Creatinine 0.54L, Sodium Level 139, Potassium Level 3.8, Chloride Level 105, Carbon Dioxide Level 28 CBC/BMP Laboratory Tests 03/17/19 23:01 Red Blood Count 4.44, Mean Corpuscular Volume 89.6, Mean Corpuscular Hemoglobin 28.8, Mean Corpuscular Hemoglobin Concent 32.2, Red Cell Distribution Width 14.6 H, Neutrophils (%) (Auto) 73.3 H, Lymphocytes (%) (Auto) 12.0 L, Monocytes (%) (Auto) 7.2 H, Eosinophils (%) (Auto) 2.3, Basophils (%) (Auto) 0.6, Neutrophils # (Auto) 9.7 H, Lymphocytes # (Auto) 1.6, Monocytes # (Auto) 1.0 H, Eosinophils # (Auto) 0.3, Basophils # (Auto) 0.1 03/18/19 08:32 Red Blood Count 3.78 L, Mean Corpuscular Volume 91.0, Mean Corpuscular Hemoglobin 29.6, Mean Corpuscular Hemoglobin Concent 32.6, Red Cell Distribution Width 14.6 H, Calcium Level 8.2 L, Aspartate Amino Transf (AST/SGOT) 15, Alanine Aminotransferase (ALT/SGPT) 13, Alkaline Phosphatase 62, Total Bilirubin 0.4, To xiomara Protein 5.8 L, Albumin 1.9 #L Allergies Coded Allergies: Penicillins (Verified Allergy, Intermediate, Hives and Rash, 03/17/19) Sulfa (Sulfonamide Antibiotics) (Verified Allergy, Intermediate, Rash and Hives, 03/17/19) morphine (Verified Allergy, Unknown, Nausea, 03/17/19) Home Medications Scheduled Aspirin (Aspirin EC) 81 Mg Tablet.dr, 81 MG PO DAILY, (Reported) Cholecalciferol (Vitamin D3) (Vitamin D3) 2,000 Unit Capsule, 2,000 UNIT PO Q2D, (Reported) Cranberry Fruit Extract (Cranberry) 500 Mg Tablet, 2,000 MG PO DAILY, (Reported) Ferrous Gluconate (Ferrous Gluconate) 324 Mg Tablet, 324 MG PO DAILY, (Reported) Furosemide (Furosemide) 40 Mg Tab, 40 MG PO DAILY, (Reported) Lactose-Reduced Food (Ensure Liquid) 237 Ml Liquid, 237 ML PO DAILY, (Reported) TAKES AT 1200 Melatonin (Melatonin) 5 Mg Tablet, 5 MG PO QHS, (Reported) Multivit-Min/FA/Lycopen/Lutein (Certavite Sr-Antioxidant Tab) 1 Each Tablet, 1 TAB PO DAILY, (Reported) Potassium Chloride (Potassium Chloride) 20 Meq Tablet.er, 20 MEQ PO DAILY, (Reported) Sennosides/Docusate Sodium (Senna-S Tablet) 1 Each Tablet, 1 TAB PO QHS, (Rep orted) Solifenacin Succinate (Vesicare) 5 Mg Tablet, 5 MG PO DAILY, (Reported) Scheduled PRN Acetaminophen (Acetaminophen) 325 Mg Tab, 650 MG PO Q4HP PRN for PAIN OR FEVER, (Reported) Bisacodyl (Bisacodyl) 10 Mg Supp.rect, [address] DAILY PRN for CONSTIPATION, (Reported) Magnesium Hydroxide (Milk of Magnesia) 400 Mg/5 Ml Oral.susp, 2,400 MG PO DAILY PRN for CONSTIPATION, (Reported) Sodium Phosphate,Dillon-Dibasic (Fleet Enema) 133 Ml Enema, [address] DAILY PRN for CONSTIPATION, (Reported) Maddie Ansari Mar 18, 2019 11:42
[2019-03-18 12:16] LABS: HEMOGLOBIN 11.4 g/dl (12.0-15.5)
[2019-03-18] MEDS: PANTOPRAZOLE 40MG INJ (PROTONIX) (C9113) IV SCH ×2 (12:55→20:31)
[2019-03-18 14:00] VITALS: BP 109/69
[2019-03-18 18:13] LABS: HEMATOCRIT 35.3 % (36.0-47.0); HEMOGLOBIN 11.3 g/dl (12.0-15.5)
[2019-03-18] MEDS: SENOKOT S TAB PO SCH (20:31)
[2019-03-18 22:00] VITALS: BP 129/73
[2019-03-18 23:49] LABS: HEMATOCRIT 32.5 % (36.0-47.0); HEMOGLOBIN 10.5 g/dl (12.0-15.5)
[2019-03-19 06:00] VITALS: BP 135/70
[2019-03-19 06:28] LABS: HEMATOCRIT 31.1 % (36.0-47.0); HEMOGLOBIN 10.2 g/dl (12.0-15.5)
[2019-03-19 06:49] LABS: ERYTHROCYTE SEDIMENTATION RATE 28 mm/hr (0-42)
[2019-03-19] MEDS: PANTOPRAZOLE 40MG INJ (PROTONIX) (C9113) IV SCH ×2 (08:14→21:19)
[2019-03-19] MEDS: D5W/0.45% SODIUM CHLORIDE 1,000 ML IV SCH ×2 (08:14→21:19)
[2019-03-19] MEDS: FERROUS GLUCONATE 324 MG TAB PO SCH (08:15)
[2019-03-19] MEDS: VITAMIN D 1,000 INTERNATIONAL UNITS TABLET PO SCH (08:15)
[2019-03-19 12:53] LABS: HEMATOCRIT 32.9 % (36.0-47.0); HEMOGLOBIN 10.6 g/dl (12.0-15.5)
--- NOTE | 2019-03-19 13:39 | IPN ---
DATE OF SERVICE: 03/18/2019 The patient was seen with her daughter at the bedside. She complained of rectal bleeding while being changed yesterday. Has denied any lightheadedness, dizziness, shortness of breath, chest pain, pressure, or tightness. Denies any nausea or vomiting. She denies any weight loss, dysphagia, odynophagia, and early satiety. No weight changes. No abdominal pain or prior history of gastrointestinal (GI) bleed. Never had a colonoscopy or esophagogastroduodenoscopy (EGD) in the past. Vital signs: Temperature is 98.3, pulse 95, respiratory rate 16, blood pressure is 120/61. Generally, the patient is awake, alert, oriented to person. She is appropriate in conversing. She has no expressive aphasia. There is no facial asymmetry. No jugular venous distention (JVD). Lungs are diminished but clear. Heart: S1, S2, sinus rhythm. Abdomen is soft, nontender, nondistended. Extremities: She has chronic lower extremity edema with venous ulcers and chronic venous stasis changes. LABORATORY DATA: Have been reviewed. Notable for a hemoglobin of 11.3, hematocrit of 35.3, and albumin of 1.9. Hemoccult stool is positive. Urine culture is pending. IMAGING STUDIES: Venous Doppler of the left lower extremity shows nonocclusive thrombus of left common femoral, superficial femoral, and popliteal vein. CT of the abdomen and pelvis shows mild thickening of the colon distal rectosigmoid area, probably an area of colitis, early neoplasm could not be excluded. Mild patchy bibasilar atelectasis or infiltrate and moderate hiatal hernia. ASSESSMENT AND PLAN: This is an 88-year-old female presented to the emergency room after being found to have bright red blood while being changed at the halfway. She was also found to have a left lower extremity deep venous thrombosis (DVT) currently and cannot be anticoagulated. CT due to complaints of congestion. CT chest was performed, which showed bilateral pulmonary embolism. She did have a prior history of pulmonary embolism (PE) in the past and has refused anticoagulation after completion of 3 months. ACUTE ISSUES: 1. Hematochezia with acute gastrointestinal (GI) bleed and blood loss anemia. She is currently medically stable with vital signs showing systolic pressure of 109-120 systolic. She is not currently requiring any red blood cell transfusion. She is off anticoagulation for DVT and due to active blood loss. 2. Deep venous thrombosis in the left lower extremity due to contraindication for anticoagulation due to acute GI bleed. Dr. Parra of vascular surgery has been consulted for inferior vena cava filter placement. I have discussed with the family that despite the inferior vena cava (IVC) filter placement, she remains susceptible to respiratory distress and failure due to bilateral pulmonary embolism. Once the patient is much more stable, will need a colonoscopy as outpatient. 3. Acute blood loss anemia secondary to active gastrointestinal bleed, most likely for colitis and questionable mass in the colon. The patient will need a colonoscopy. She agrees to do this as outpatient, but due to her advanced age, will defer this decision to the family. Due to the bilateral PE, the patient is not a candidate for EGD or colonoscopy at this time. 4. Acute colitis with hematochezia. Will place on Cipro and Flagyl due to elevated white count despite not having a fever but was hypothermic at 96.1. She has history of PENICILLIN AND SULFA ALLERGY. Therefore, the patient will be placed on Cipro and Flagyl. 5. History of coronary artery disease (CAD)/myocardial infarction (ID). Currently does not have any acute ischemic symptoms. 6. History of Guillain-[place], chronic. 7. History of kyphosis, complicating care and respiratory status. 8. Chronic wheelchair-bound. She is a halfway resident.
[2019-03-19 14:00] VITALS: BP 113/64
[2019-03-19 19:02] LABS: HEMATOCRIT 35.4 % (36.0-47.0); HEMOGLOBIN 11.4 g/dl (12.0-15.5)
[2019-03-19] MEDS: SENOKOT S TAB PO SCH (21:19)
[2019-03-19 22:00] VITALS: BP 128/74
[2019-03-20 00:41] LABS: HEMATOCRIT 30.5 % (36.0-47.0); HEMOGLOBIN 9.8 g/dl (12.0-15.5)
[2019-03-20 06:00] VITALS: BP 128/73
[2019-03-20 06:00] LABS: HEMOGLOBIN 9.7 g/dl (12.0-15.5); MEAN CORPUSCULAR HEMOGLOBIN 28.6 pg (27.0-33.0); MEAN CORPUSCULAR HGB CONC 32.3 g/dl (32.0-36.5); MEAN CORPUSCULAR VOLUME 88.5 fl (80.0-96.0); PLATELET COUNT, AUTOMATED 288 10^3/uL (150-450); RED BLOOD COUNT 3.39 10^6/uL (4.00-5.40); WHITE BLOOD COUNT 10.2 10^3/uL (4.0-10.0)
[2019-03-20 06:23] LABS: BLOOD UREA NITROGEN 13 MG/DL (7-18); CALCIUM LEVEL 7.9 MG/DL (8.8-10.2); CARBON DIOXIDE LEVEL 25 MEQ/L (21-32); CHLORIDE LEVEL 106 MEQ/L (98-107); GLOMERULAR FILTRATION RATE > 60.0 (>32); GLUCOSE, FASTING 135 MG/DL (70-100); POTASSIUM SERUM 3.6 MEQ/L (3.5-5.1); SODIUM LEVEL 138 MEQ/L (136-145)
--- NOTE | 2019-03-20 08:57 | REP ---
PORTABLE CHEST, ONE VIEW: HISTORY: Shortness of breath. COMPARISON: 03/10/2019. Parenchymal densities are present in the lower lobes consistent with atelectasis or infiltrates. The heart is normal in size. The pulmonary vasculature is normal in appearance. A hiatal hernia is present. IMPRESSION: Bibasilar atelectasis or infiltrate. Electronically Signed by Ramesh Alvarez MD 03/20/2019 09:02 A
[2019-03-20] MEDS: PANTOPRAZOLE 40MG INJ (PROTONIX) (C9113) IV SCH ×2 (09:53→19:53)
[2019-03-20] MEDS: FERROUS GLUCONATE 324 MG TAB PO SCH (09:53)
--- NOTE | 2019-03-20 10:20 | IPNPDOC ---
Date Seen The patient was seen on 03/20/19. Progress Note Vascular surgery. Dr. Parra HPI: 88 year old F with a past medical history significant for pulmonary embolism 2013, currently on aspirin 81 mg daily admitted 03/18/19 for BRBPR as per hospitalist service. The patient had ultrasound completed of left lower extremity 03/17/19 indicating DVT with CTA chest 03/18/19 indicating bilateral PE. Vascular surgery was consulted for consideration of IVC filter. S/P IVC filter placement 03/18/19. PMHx: History of PE 2013. She reports that in 2013 the patient had a lower extremity fracture status post repair went to [facility] for rehabilitation in 2 weeks later was diagnosed with pulmonary embolism. The patient was initially placed on Coumadin later changed to Eliquis. Anticoagulation was stopped 2014. 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 Iron deficiency Lactose intolerance OAB Chronic constipation PSHX: Right knee arthroplasty Left tib-fib ORIF Cystoscopy PE: GEN: 88yoF appears stated age. Alert and oriented x 3. HEENT: Normocephalic, atraumatic. Moist mucous membranes. CHEST: Regular rate and rhythm, +S1, +S2 LUNGS: Decreased breath sounds but clear bilaterally. ABD: Round, soft, non-tender, non-distended. EXT: Bilateral feet are warm to touch. Good capillary refill. No wounds on the feet however there is a wound noted on the pretibial area of the left lower extremity which the daughter states occurred from bumping her chair. Lower extremity venous ultrasound Nonocclusive thrombus left common femoral, superficial femoral, and popliteal veins. Electronically Signed by Siddharth Perez MD 03/18/2019 10:51 A CTA chest Bilateral pulmonary emboli. Bibasilar atelectasis/infiltrate inferiorly in the lung bases. Unreviewed DD: Siddharth Perez MD, MD 03/18/19 1004 A&P: 1. Left lower extremity nonocclusive DVT with bilateral PE. Pt with h/o previous DVT 2013. Hypercoagulable GAYTAN pending. The patient is also currently being treated for possible GI bleeding. Gastroenterology consulted. 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 The patient is unable to be placed on anticoagulant at this time. The patient is reviewed and examined as per Dr. Parra. S/P IVC filter placement 03/18/19. 2. BRBPR. Gastroenterology consulted. Hgb 9.7. The pt is reviewed by Dr Parra, no indication for mesenteric angiogram at this time. Monitor. VS, I&O, 24H, Fishbone Vital Signs/I&O Vital Signs Date Time Temp Pulse Resp B/P (MAP) Pulse Ox O2 Delivery O2 Flow Rate FiO2 03/20/19 06:00 97.1 88 18 128/73 (91) 91 03/18/19 07:00 Room Air I&O- Last 24 Hours up to 6 AM 03/20/19 06:00 Intake Total 1260 ml Balance 1260 ml Laboratory Data 24H LABS Laboratory Tests 2 03/20/19 05:47: Nucleated Red Blood Cells % (auto) 0.0, Anion Gap 7L, Glomerular Filtration Rate > 60.0, Blood Urea Nitrogen 13#, Creatinine 0.50L, Sodium Level 138, Potassium Level 3.6, Chloride Level 106, Carbon Dioxide Level 25, Calcium Level 7.9L 03/20/19 06:38: Bedside Glucose (Misc Panel) 142H CBC/BMP Laboratory Tests 03/19/19 12:22 03/19/19 18:46 03/19/19 23:55 03/20/19 05:47 Red Blood Count 3.39 L, Mean Corpuscular Volume 88.5, Mean Corpuscular Hemoglobin 28.6, Mean Corpuscular Hemoglobin Concent 32.3, Red Cell Distribution Width 14.6 H, Calcium Level 7.9 L Microbiology Microbiology 03/18/19 Stool Occult Blood (DEANNE) - Final, Complete 03/18/19 Urine Culture - Final, Complete Maddie Ansari Mar 20, 2019 10:20
[2019-03-20 12:33] LABS: HEMOGLOBIN 10.4 g/dl (12.0-15.5)
[2019-03-20 14:00] VITALS: BP 124/66
[2019-03-20 15:47] LABS: ANTINUCLEAR ANTIBODIES DIRECT Negative (Negative)
--- NOTE | 2019-03-20 17:06 | IPN ---
DATE OF SERVICE: 03/19/2019 The patient was seen and examined at the bedside. Chart has been reviewed. She denies any recurrent episodes of hematochezia. She denies any hematemesis or abdominal pain. She is status post IVC filter placement due to gastrointestinal bleed. PHYSICAL EXAMINATION: Vital signs: Temperature is 98.4, pulse 115, respiratory rate 15, blood pressure is 113/64, 94% on room air. Generally, the patient is awake, alert, oriented two to person and place. Daughter is at the bedside. Very hard of hearing. Moist mucous membranes. No facial asymmetry. No jugular venous distention (JVD). LUNGS: Clear to auscultation. No wheezing, rales or rhonchi. HEART: S1, S2. Sinus rhythm. ABDOMEN: Soft, nontender, nondistended. Positive bowel sounds. No rebound or guarding. EXTREMITIES: Lower extremity has venous ulcers and chronic lower extremity edema, chronic venous stasis changes. LABORATORY DATA: Have been reviewed. ASSESSMENT AND PLAN: This is an 88-year-old female who presented to the emergency room after being turned at [facility] and found to have hematochezia. Imaging studies showed a left lower extremity deep venous thrombosis (DVT). The patient could not be anticoagulated. CT of the chest performed due to complaints of shortness of breath and showed bilateral pulmonary emboli. The patient could not undergo esophagogastroduodenoscopy (EGD) or colonoscopy due to bilateral pulmonary emboli. ACUTE ISSUES: 1. Hematochezia due to acute gastrointestinal (GI) bleed and blood loss anemia. She is medically stable and not requiring a blood transfusion. Anticoagulation has been held and contraindicated due to the acute gastrointestinal bleed and deep vein thrombosis (DVT). Has been addressed by placing IVC filter. 2. Deep venous thrombosis in the left lower extremity. Could not be anticoagulated due to active gastrointestinal bleed. Vascular surgery placed an IVC filter on 03/18/2019. 3. Acute colitis with hematochezia. On Cipro and Flagyl. Advance diet. 4. History of coronary artery disease (CAD)/myocardial infarction ([place]). No acute active symptoms. 5. 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 6. History of kyphosis, complicating care and respiratory status. 7. Chronically bedbound. correction placement. 8. Hypoalbuminemia and protein calorie malnutrition, complicating care.
[2019-03-20 18:33] LABS: HEMOGLOBIN 10.7 g/dl (12.0-15.5)
[2019-03-20] MEDS: SENOKOT S TAB PO SCH (19:53)
[2019-03-20] MEDS: SUCRALFATE SUSP 1GM/10ML UD PO SCH (19:53)
[2019-03-20 22:00] VITALS: BP 121/65
[2019-03-21 06:00] VITALS: BP 126/71
[2019-03-21] MEDS: VITAMIN D 1,000 INTERNATIONAL UNITS TABLET PO SCH (08:18)
[2019-03-21] MEDS: PANTOPRAZOLE 40MG INJ (PROTONIX) (C9113) IV SCH ×2 (08:18→21:48)
[2019-03-21] MEDS: SUCRALFATE SUSP 1GM/10ML UD PO SCH ×4 (08:18→21:48)
[2019-03-21] MEDS: FERROUS GLUCONATE 324 MG TAB PO SCH (08:19)
[2019-03-21 09:12] VITALS: BP 119/68
--- NOTE | 2019-03-21 10:38 | IPN ---
DATE: 03/20/2019 The patient was found to have two more episodes of melanotic stools overnight, black, tarry and sticky looking. She otherwise denies any shortness of breath, but has been found to have sinus tachycardia with known history of bilateral pulmonary embolism. She is status post IVC filter placement due to lower extremity deep venous thrombosis (DVT) which cannot be anticoagulated due to acute blood loss anemia. The patient's daughter is well aware that there is no other option for treatment should the patient decompensate with worsening respiratory distress from bilateral pulmonary embolism (PE) in light of inability to anticoagulate and active bleeding. Hemoglobin and hematocrit had initially decreased from admission of 12.8 to 9.7 this morning. Current hemoglobin and repeat at noon-time is 10.4. Patient otherwise denies any lightheadedness, dizziness. She is bed-bound in general and is usually turned hourly to prevent pressure ulcers. She denies any chest pain, pressure or tightness this morning. Temperature 98.5, pulse 111, respiratory 16, blood pressure 124/66, 94% on room air. GENERAL: Patient is awake, alert, oriented to herself. She is very hard of hearing. Answers questions appropriately. She has no pallor. No cyanosis. No use of respiratory accessory muscles. Moist mucous membranes. Poor dentition. No jugular venous distention. No thyromegaly. No cervical lymphadenopathy. LUNGS: Diminished, but clear to auscultation. No wheezing, rales or rhonchi. HEART: S1, S2, sinus tachycardia. ABDOMEN: Soft, nontender. Nondistended. Positive bowel sounds. No cyanosis, clubbing. Chronic ulcers noted on bilateral lower extremities. LABORATORY DATA: CBC notable for hemoglobin of 10.4, hematocrit of 32. Previous hemoglobin 9.7, hematocrit of 30. Calcium of 7.9, albumin 1.9. Chest x-ray 03/20/2019: Bibasilar atelectasis or infiltrate. ASSESSMENT AND PLAN: This is an 88-year-old female presented to the ER after routine diaper change at [facility] found to have hematochezia and due to lower extremity edema, venous upper and lower extremity was found to be positive. Due to acute GI bleed she cannot be anticoagulated. Due to complaint of shortness of breath, CT chest performed and showed bilateral PE. Patient could not undergo esophagogastroduodenoscopy (EGD) colonoscopy for evaluation of GI bleed due to active bilateral PE secondary to lower extremity DVT. ACUTE ISSUES: 1. Acute upper GI bleed with melena noted this morning. The patient's hemoglobin and hematocrit appears stable. Does not require an acute blood transfusion at this moment. Anticoagulation has been held, contraindicated due to acute GI bleed. 2. Currently on IV Protonix. Carafate has been added due to hematochezia, most likely from upper GI bleed. Differential includes ulcer disease, gastritis. She does have hiatal hernia on chest x-ray. Will place on Carafate. 3. DVT and PE bilaterally. Could not be anticoagulated due to acute and active blood loss anemia secondary to upper GI bleed with melena. Vascular surgery replaced IVC filter 03/18/2019. 4. Acute colitis with hematochezia, on Cipro-Flagyl. Currently tolerating her diet. 5. History of coronary artery disease (CAD), myocardial infarction ([place]). Currently does not complain of acute ischemic symptoms. 6. History of Guillain-[place]. Chronic bed-bound at baseline. 7. History of kyphosis complicating care and respiratory status. 8. 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 9. Hyperalbuminemia and protein calorie malnutrition complicating care. Nutrition is consulted. MTDD
[2019-03-21] MEDS ORDERED: ACETAMINOPHEN TAB 650MG DOSE (2X325MG) PO PRN (11:58)
[2019-03-21 14:09] LABS: HEMOGLOBIN 10.7 g/dl (12.0-15.5); MEAN CORPUSCULAR HEMOGLOBIN 28.9 pg (27.0-33.0); MEAN CORPUSCULAR HGB CONC 32.4 g/dl (32.0-36.5); MEAN CORPUSCULAR VOLUME 89.2 fl (80.0-96.0); PLATELET COUNT, AUTOMATED 332 10^3/uL (150-450)
[2019-03-21 14:12] VITALS: BP 110/69
[2019-03-21 14:30] LABS: BLOOD UREA NITROGEN 14 MG/DL (7-18); CALCIUM LEVEL 8.4 MG/DL (8.8-10.2); CARBON DIOXIDE LEVEL 25 MEQ/L (21-32); CHLORIDE LEVEL 106 MEQ/L (98-107); CREATININE FOR GFR 0.63 MG/DL (0.55-1.30); GLOMERULAR FILTRATION RATE > 60.0 (>32); GLUCOSE, FASTING 215 MG/DL (70-100); POTASSIUM SERUM 3.9 MEQ/L (3.5-5.1); SODIUM LEVEL 136 MEQ/L (136-145)
[2019-03-21] MEDS: SENOKOT S TAB PO SCH (21:00)
[2019-03-21] MEDS: MELATONIN 5mg (PATIENT'S OWN MED) PO SCH (21:48)
[2019-03-21 22:00] VITALS: BP 130/75
[2019-03-22 06:00] VITALS: BP 128/61
[2019-03-22] MEDS: SUCRALFATE SUSP 1GM/10ML UD PO SCH ×4 (07:50→21:55)
[2019-03-22] MEDS: PANTOPRAZOLE 40MG INJ (PROTONIX) (C9113) IV SCH ×2 (07:50→07:56)
[2019-03-22] MEDS: FERROUS GLUCONATE 324 MG TAB PO SCH (07:50)
--- NOTE | 2019-03-22 10:56 | IPN ---
DATE: 03/21/2019 Patient is seen and examined at the bedside. Chart has been reviewed. Patient denies any recurrent bloody, maroon-colored or melanotic stools overnight. Hemoglobin and hematocrit remains stable. She denies any shortness of breath, chest pain, pressure or tightness, lightheadness, dizziness. She is bed-bound at baseline. No other issues per nursing overnight. Temperature 97.4, pulse 94, respiratory rate 18, blood pressure 119/68, 97% on room air. GENERAL: Patient is awake, alert, oriented to person. She is very hard of hearing but answering questions appropriately. No conversational dyspnea. No use of respiratory accessory muscles. No cyanosis, icterus or jaundice. Poor dentition. Moist mucous membranes. No JVD, no thyromegaly. No cervical lymph. LUNGS: Clear to auscultation. No wheezing, rales or rhonchi. HEART: S1, S2, sinus tachycardia. ABDOMEN: Soft, nontender, nondistended. Positive bowel sounds. No cyanosis. Positive bowel sounds. EXTREMITIES: No cyanosis or clubbing. Chronic ulcers noted bilateral lower extremities. Laboratory data, microbiology and imaging studies have been reviewed. ASSESSMENT AND PLAN: This is an 88-year-old female presented to the emergency room after being found to have hematochezia and sent to the emergency room due to lower extremity edema. Patient underwent venous Doppler which showed acute DVT. Patient could not be anticoagulated due to acute GI bleed and because of complaints of shortness of breath CT chest was performed which showed bilateral pulmonary embolism (PE), EGD, colonoscopy could not be done to evaluate the GI bleed due to active bilateral PE secondary to lower extremity DVT. ACUTE ISSUES: 1. Acute upper GI bleed with melena. Patient had stable hemoglobin and hematocrit not requiring acute blood transfusion. Anticoagulation has been held as it is contraindicated. 2. Currently on Protonix, Carafate has been added. EGD and colonoscopy cannot be performed due to active bilateral PE. 3. Bilateral PE and DVT. Could not be anticoagulated, status post IVC filter placement on 03/18 by vascular surgery. 4. Acute colitis with hematochezia, on Cipro/Flagyl. Tolerating her diet. 5. History of CAD/OK. Does not complain of acute ischemic symptoms. Patient denies any abdominal pain with eating. 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 7. History of kyphosis complicating care and respiratory status. 8. 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 Bed-bound at baseline. 9. Protein calorie malnutrition complicating care. MTDD
[2019-03-22] MEDS: PANTOPRAZOLE 40MG TAB (PROTONIX) PO SCH ×2 (12:04→21:55)
[2019-03-22 14:00] VITALS: BP 118/75
[2019-03-22] MEDS: metroNIDAZOLE (FLAGYL) 500 MG TAB PO SCH ×2 (15:30→21:54)
[2019-03-22] MEDS: CIPROFLOXACIN 250 MG TAB PO SCH (17:02)
[2019-03-22] MEDS: SENOKOT S TAB PO SCH (21:55)
[2019-03-22 22:00] VITALS: BP 137/82
[2019-03-22] MEDS: MELATONIN 5mg (PATIENT'S OWN MED) PO SCH (23:19)
[2019-03-23] MEDS: CIPROFLOXACIN 250 MG TAB PO SCH (05:29)
[2019-03-23] MEDS: metroNIDAZOLE (FLAGYL) 500 MG TAB PO SCH ×2 (05:29→13:07)
[2019-03-23 06:00] VITALS: BP 131/77
[2019-03-23] MEDS: SUCRALFATE SUSP 1GM/10ML UD PO SCH ×2 (06:46→13:07)
[2019-03-23] MEDS ORDERED: CIPR-250 PO (07:46)
[2019-03-23] MEDS ORDERED: PANT40TA3 PO (07:46)
[2019-03-23] MEDS ORDERED: FLAG500T PO (07:46)
[2019-03-23] MEDS ORDERED: SUCR10SS PO (07:46)
[2019-03-23 08:34] LABS: HEMATOCRIT 32.7 % (36.0-47.0); HEMOGLOBIN 10.7 g/dl (12.0-15.5); MEAN CORPUSCULAR HEMOGLOBIN 29.5 pg (27.0-33.0); MEAN CORPUSCULAR HGB CONC 32.7 g/dl (32.0-36.5); MEAN CORPUSCULAR VOLUME 90.1 fl (80.0-96.0); PLATELET COUNT, AUTOMATED 308 10^3/uL (150-450); RED BLOOD COUNT 3.63 10^6/uL (4.00-5.40); WHITE BLOOD COUNT 9.4 10^3/uL (4.0-10.0)
[2019-03-23 08:58] LABS: BLOOD UREA NITROGEN 15 MG/DL (7-18); CALCIUM LEVEL 8.3 MG/DL (8.8-10.2); CARBON DIOXIDE LEVEL 25 MEQ/L (21-32); CHLORIDE LEVEL 107 MEQ/L (98-107); CREATININE FOR GFR 0.51 MG/DL (0.55-1.30); GLOMERULAR FILTRATION RATE > 60.0 (>32); GLUCOSE, FASTING 137 MG/DL (70-100); SODIUM LEVEL 139 MEQ/L (136-145)
[2019-03-23] MEDS: FERROUS GLUCONATE 324 MG TAB PO SCH (09:56)
[2019-03-23] MEDS: VITAMIN D 1,000 INTERNATIONAL UNITS TABLET PO SCH (09:56)
[2019-03-23] MEDS: PANTOPRAZOLE 40MG TAB (PROTONIX) PO SCH (09:56)
--- NOTE | 2019-03-23 20:27 | IPN ---
DATE: 03/22/2019 Patient is seen and examined at the bedside. Chart has been reviewed. Patient is sleeping comfortably, awakens, and answers questions appropriately. She is slightly hard of hearing and says that she has not had any repeat episodes of melena, black tarry stools. Denies any hematemesis, coffee-ground emesis, abdominal pain, nausea or vomiting. Shortness of breath has improved. Patient is status post inferior vena cava (IVC) filter due to deep vein thrombosis (DVT) in the lower extremity and bilateral pulmonary embolism (PE). VITAL SIGNS: Temperature 97.6, pulse 92, respiratory rate 18, blood pressure 120/61, 91% on room air. GENERAL: Patient is awake, alert and oriented to person and place, answers questions appropriately. No use of respiratory accessory muscles. No conversational dyspnea. Able to speak in full sentences. No cyanosis, icterus or jaundice. Poor dentition with dentures. No jugular venous distention, thyromegaly, or cervical lymphadenopathy. LUNGS: Clear to auscultation. No wheezes, rales, or rhonchi. Air entry is equal bilaterally. HEART: S1, S2, episodes of sinus tachycardia. ABDOMEN: Soft, nontender, nondistended. Positive bowel sounds times four quadrants. Obese abdomen. EXTREMITIES: No clubbing, cyanosis, or any pitting edema. Patient has chronic ulcers. Laboratory data, imaging studies and microbiology have been reviewed. ASSESSMENT AND PLAN: An 88-year-old who presented to the emergency room (ER) after being [facility] to [facility]. She was found to have a deep vein thrombosis (DVT) due to increased lower extremity edema, evaluated and could not be anticoagulated due to acute gastrointestinal (GI) bleed. Patient underwent inferior vena cava (IVC) filter placement by Dr. Parra, vascular surgery, and currently has the following acute issues. 1. Acute upper GI bleed with recent melena. She had a stable hemoglobin and hematocrit. Anticoagulation has been held as it is contraindicated. Hemoglobin and hematocrit has remained stable. She has no symptoms from the anemia. Currently on Protonix and Carafate. Esophagogastroduodenoscopy (EGD), colonoscopy could not be performed due to active GI bleed with bilateral pulmonary embolism (PE). 2. Bilateral PE and DVT. Currently not on anticoagulation due to acute GI bleed, status post IVC filter. Patient and the patient's daughter, the healthcare proxy, are well aware that the PE can cause respiratory failure to the point of . However, at this time, she can not be anticoagulated due to active bleeding. She is not a candidate for EGD due to active PE bilaterally. 3. Acute colitis, on Cipro and Flagyl to complete a total course of seven days. She is tolerating her diet without any abdominal pain, nausea, or vomiting. 4. History of coronary artery disease (CAD), myocardial infarction (CO). Does not complain of acute ischemic symptoms. Patient denies any abdominal pain with eating of food aversion to suspect any acute ischemia or ischemic colitis or mesenteric ischemia. 5. 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 6. History of kyphosis complicating care and respiratory status. 7. 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 Bed-bound at baseline. 8. Protein-calorie malnutrition, complicating care. DISPOSITION: If stable, may transfer back to the prison tomorrow. [facility]
[2019-03-24 10:11] LABS: DRVV SCREEN 42.4 SEC
--- NOTE | 2019-03-24 11:12 | DSES ---
DATE OF ADMISSION: 03/18/2019 DATE OF DISCHARGE: 03/23/2019 CONSULTANTS DURING ADMISSION: Gastrointestinal, Dr. Heath Vascular surgery, Dr. Parra PROCEDURES DURING THIS ADMISSION: Inferior vena cava (IVC) filter placement. PRIMARY DISCHARGE DIAGNOSES: 1. Gastrointestinal (GI) bleed. 2. Acute bilateral pulmonary embolism. 3. Deep vein thrombosis (DVT). 4. Acute colitis with hematochezia. 5. Guillain[place], bed bound at baseline. 6. History of kyphosis. 7. Functional quadriplegia due to Guillain[place]. DISCHARGE MEDICATIONS: - ciprofloxacin 250 by mouth twice a day - Flagyl 500 every 8 hours - Protonix 40 twice a day - Carafate 1 gram by mouth before meals and at bedtime - acetaminophen 650 every 4 hours as needed - bisacodyl 10 mg per rectum daily as needed - vitamin D3 2000 units every two days - cranberry 2000 mg daily - ferrous gluconate 325 daily - Lasix 40 daily - Ensure liquid 237 daily - magnesium hydroxide 2.4 grams daily - melatonin 5 mg at bedtime - multivitamin one tablet daily - potassium chloride 20 mEq daily - Senokot one tablet at bedtime - fleet enema one daily - VESIcare 5 mg daily DISCHARGE INSTRUCTIONS: The patient's aspirin has been discontinued due to acute GI bleed. The patient has been instructed to follow-up with primary care physician. No anticoagulants or antiplatelet medications for one week then decide whether the patient can be anticoagulated if no ongoing bleeding and stable from the respiratory status from bilateral PEs. Follow-up as an outpatient with Dr. Heath for EGD and colonoscopy. HOSPITAL COURSE: This is an 88-year-old female who was brought into the emergency room with complaints of blood after the patient was changed at the long term. In the ER, due to lower extremity edema, vascular ultrasound performed showed acute DVT. IVC filter was then placed by Dr. Parra and anticoagulation could not be started. The patient complained for shortness of breath, pleuritic chest pain. She was not hypoxic, but was evaluated with CT of the chest which showed bilateral pulmonary embolism (PE). The patient did not have any recurrent episodes of blood loss anemia after the third day when she had melanotic stools, hemoglobin and hematocrit remained stable, did not require blood transfusion. Hemoglobin was 10, hematocrit of 32. She remained stable on room air despite bilateral PE with no anticoagulation due to active GI bleed. It was explained to the patient and the patient's family that she is not a candidate for EGD or colonoscopy because of the active bilateral pulmonary embolism and high risk for respiratory failure with conscious sedation. Therefore, it was decided that should the patient decompensate that the patient and the family would be prepared to honor her DO NOT RESUSCITATE status. LABS ON DISCHARGE: 03/23 CBC white count 9.4, hemoglobin 10.7, hematocrit 32, platelets 308. Sodium 139, potassium 4, chloride 107, bicarb 25, BUN 15, creatinine 0.51, glucose 137. Microbiology: Hemoccult stool 03/18 positive. Urine culture 03/18 no growth. IMAGING STUDIES: 03/17/2019 venous Doppler of the lower extremity nonocclusive thrombus, left common femoral, superficial femoral, and popliteal vein. CT abdomen and pelvis 03/18/2019 moderate hiatal hernia. Mild patchy bibasilar atelectasis or infiltrate. Possible mild thickening of a portion of distal rectus sigmoid colon with adjacent edema in the perirectal fat, posteriorly, nonspecific and possibly due to an area of colitis. Early neoplasm cannot be excluded. No free air or free fluid otherwise. The sigmoid colon demonstrates multiple innumerable diverticula. CT chest on 03/18/2019 bilateral pulmonary emboli, bibasilar atelectasis in the lung bases. Moderate hiatal hernia. Time spent on discharge, 32 minutes. MTDD
[2019-03-25 14:12] LABS: ANTI THROMBIN 3 ANTIGEN IMMUNO 74 % (72-124); ANTI THROMBIN 3 FUNCT ACTIVITY 90 % (75-135); PROTEIN C ANTIGEN 90 % (60-150); PROTEIN S ANTIGEN FREE 81 % (57-157); PROTEIN S ANTIGEN TOTAL 88 % (60-150)
--- NOTE | 2019-03-27 09:03 | REPIR ---
DATE OF PROCEDURE: 03/18/2019 PREOPERATIVE DIAGNOSES: Deep venous thrombosis DVT, pulmonary embolus (PE) gastrointestinal bleeding. POSTOPERATIVE DIAGNOSES: Deep venous thrombosis DVT, pulmonary embolus (PE) gastrointestinal bleeding. PROCEDURE: Ultrasound-guided right basilic vein cannulation. Ultrasound-guided right brachial vein cannulation. Inferior vena cava catheter placement venogram. Inferior vena cava filter placement with an Option Elite filter. ATTENDING SURGEON Dr. Hola Parra. ASSISTANTS: Linh Rizvi and Rohini Aguilera ANESTHESIA: Local with 7 mL of 2% lidocaine mixed with 0.5% Marcaine. FLUORO TIME: 2.7 minutes. CONTRAST: 5 mL HEPARIN: None. COMPLICATION: None. DRAINS: None. SPECIMENS: None. IMPLANTS: Option Elite filter placed in the inferior vena cava. INDICATION: The patient is an 88-year-old female with DVT and history of PE who was unable to undergo anticoagulation due to gastrointestinal bleeding. The patient will undergo placement of an inferior vena cava filter. PROCEDURE: The patient was taken to the angiography suite, placed on the angiography room table and then prepped and draped in a standard surgical fashion. The right basilic vein was cannulated with ultrasound guidance where there was inability to pass the wire into the central venous system. The ultrasound was then used to guide cannulation of the right brachial vein. The wire was passed into the inferior vena cava. The catheter was placed and venogram was performed showing the position of the renal veins after which the filter was placed below level of renal veins using fluoroscopic guidance. Final fluoroscopic image showed the filter to be in good position and good alignment below the level of the previously marked renal veins. The sheath was removed and manual compression applied at the puncture site for hemostasis. Dressings were then applied. The patient tolerated procedure well. All instrument, sponge and needle counts were correct at the end of the case. There were no complications. Dr. Parra was present for and directed the entire case. The patient was transferred to the holding area and subsequent to the floor in stable condition.
== END 2019-03-23 13:00 | DRG 356 ==
LOC: M ED 22:27 → M ED INP 03-18 02:26 → M MSPAV 03-18 13:51
PROVIDERS: ADMIT Hospitalist; ATTEND General Practice
PROC: 06L03DZ Occlusion of Inferior Vena Cava with Intraluminal Device, Percutaneous Approach (ICD-10-PCS; principal; 2019-03-18 15:30)
DX: K52.9 Noninfective gastroenteritis and colitis, unspecified (principal); I26.99 Other pulmonary embolism without acute cor pulmonale; R53.2 Functional quadriplegia; I82.412 Acute embolism and thrombosis of left femoral vein; I82.432 Acute embolism and thrombosis of left popliteal vein; J84.9 Interstitial pulmonary disease, unspecified; I50.32 Chronic diastolic (congestive) heart failure; G61.0 Guillain-Barre syndrome; D62 Acute posthemorrhagic anemia; E46 Unspecified protein-calorie malnutrition; K62.5 Hemorrhage of anus and rectum; M40.209 Unspecified kyphosis, site unspecified; D72.829 Elevated white blood cell count, unspecified; I25.2 Old myocardial infarction; I25.10 Atherosclerotic heart disease of native coronary artery without angina pectoris; Z99.3 Dependence on wheelchair; Z79.82 Long term (current) use of aspirin; Z79.899 Other long term (current) drug therapy; Z88.0 Allergy status to penicillin; Z88.2 Allergy status to sulfonamides; Z88.5 Allergy status to narcotic agent; K59.09 Other constipation; N32.81 Overactive bladder; E73.9 Lactose intolerance, unspecified; Z87.891 Personal history of nicotine dependence

== ENCOUNTER → 2019-03-17 | Outpatient (REF) | payer MEDICARE ==
[~2019-03-17] MED LIST changes: +ASPI-161 PO; +BISA10SU27 PR; +CERTTAB8 PO; +D200CAP3 PO; +ENSULIQ8 PO; +FERR325T16 PO; +FLEEENE12 PR; +HM C500T3 PO; +MELA5TAB7 PO; +MILKSUS3 PO; +POTA1TAB14 PO; +SENN1TAB41 PO; +VESI5TAB2 PO; +VITA500C PO
[2019-03-17 10:41] LABS: HEMOGLOBIN 11.6 g/dl (12.0-15.5); MEAN CORPUSCULAR HEMOGLOBIN 29.4 pg (27.0-33.0); MEAN CORPUSCULAR HGB CONC 32.2 g/dl (32.0-36.5); MEAN CORPUSCULAR VOLUME 91.4 fl (80.0-96.0); PLATELET COUNT, AUTOMATED 353 10^3/uL (150-450); RED BLOOD COUNT 3.94 10^6/uL (4.00-5.40); WHITE BLOOD COUNT 10.7 10^3/uL (4.0-10.0)
[2019-03-17 11:08] LABS: BLOOD UREA NITROGEN 28 MG/DL (7-18); CALCIUM LEVEL 8.3 MG/DL (8.8-10.2); CARBON DIOXIDE LEVEL 29 MEQ/L (21-32); CHLORIDE LEVEL 103 MEQ/L (98-107); CREATININE FOR GFR 0.53 MG/DL (0.55-1.30); GLOMERULAR FILTRATION RATE > 60.0 (>32); GLUCOSE, FASTING 123 MG/DL (70-100); POTASSIUM SERUM 4.1 MEQ/L (3.5-5.1); SODIUM LEVEL 138 MEQ/L (136-145)
== END ==
PROVIDERS: ATTEND Internal Medicine
DX: D72.829 Elevated white blood cell count, unspecified (principal)

== ENCOUNTER → 2019-03-17 | Outpatient (CLI) | payer MEDICARE ==
--- NOTE | 2019-03-17 15:03 | REP ---
LEFT LOWER EXTREMITY DUPLEX DOPPLER VENOUS ULTRASOUND: Real-time compression and duplex Doppler interrogation of the left lower extremity deep venous system is performed. There is nonocclusive thrombus in the left common femoral vein, superficial femoral vein and popliteal vein extending to the tibioperoneal trunk. IMPRESSION: Nonocclusive thrombus left common femoral, superficial femoral, and popliteal veins. Electronically Signed by Siddharth Perez MD 03/18/2019 10:51 A
== END ==
LOC: M RAD 13:07
PROVIDERS: ATTEND Physician Assistant
DX: I82.412 Acute embolism and thrombosis of left femoral vein (principal); I82.432 Acute embolism and thrombosis of left popliteal vein

== ENCOUNTER → 2019-03-25 | Outpatient (REF) | payer MEDICARE ==
[~2019-03-25] MED LIST changes: +ASPI-161 PO; +BISA10SU27 PR; +CERTTAB8 PO; +CIPR-250 PO; +D200CAP3 PO; +ENSULIQ8 PO; +FERR325T16 PO; +FLAG500T PO; +FLEEENE12 PR; +HM C500T3 PO; +MELA5TAB7 PO; +MILKSUS3 PO; +PANT40TA3 PO; +POTA1TAB14 PO; +SENN1TAB41 PO; +SUCR10SS PO; +VESI5TAB2 PO; +VITA500C PO
[2019-03-25 10:23] LABS: HEMATOCRIT 33.9 % (36.0-47.0); HEMOGLOBIN 10.8 g/dl (12.0-15.5); MEAN CORPUSCULAR HEMOGLOBIN 28.7 pg (27.0-33.0); MEAN CORPUSCULAR HGB CONC 31.9 g/dl (32.0-36.5); MEAN CORPUSCULAR VOLUME 90.2 fl (80.0-96.0); PLATELET COUNT, AUTOMATED 326 10^3/uL (150-450); RED BLOOD COUNT 3.76 10^6/uL (4.00-5.40); WHITE BLOOD COUNT 6.6 10^3/uL (4.0-10.0)
[2019-03-25 10:56] LABS: BLOOD UREA NITROGEN 18 MG/DL (7-18); CALCIUM LEVEL 8.4 MG/DL (8.8-10.2); CARBON DIOXIDE LEVEL 25 MEQ/L (21-32); CHLORIDE LEVEL 104 MEQ/L (98-107); CREATININE FOR GFR 0.66 MG/DL (0.55-1.30); GLOMERULAR FILTRATION RATE > 60.0 (>32); GLUCOSE, FASTING 181 MG/DL (70-100); SODIUM LEVEL 138 MEQ/L (136-145)
== END ==
PROVIDERS: ATTEND Physician Assistant
DX: D64.9 Anemia, unspecified (principal); K92.2 Gastrointestinal hemorrhage, unspecified; I50.9 Heart failure, unspecified; S80.12XA Contusion of left lower leg, initial encounter; S80.11XA Contusion of right lower leg, initial encounter; W22.8XXA Striking against or struck by other objects, initial encounter; Y92.129 Unspecified place in nursing home as the place of occurrence of the external cause; Y99.8 Other external cause status
CPT/HCPCS: 10140; 36415; 80048; 85027; G0463

== ENCOUNTER → 2019-03-27 | Outpatient (REF) | payer MEDICARE, OTHER ==
[~2019-03-27] MED LIST changes: -VITA500C PO; +[UNRECOGNIZED DRUG - CODE] PO
[2019-03-27 09:55] LABS: HEMATOCRIT 31.2 % (36.0-47.0); HEMOGLOBIN 10.1 g/dl (12.0-15.5); MEAN CORPUSCULAR HEMOGLOBIN 29.2 pg (27.0-33.0); MEAN CORPUSCULAR HGB CONC 32.4 g/dl (32.0-36.5); MEAN CORPUSCULAR VOLUME 90.2 fl (80.0-96.0); PLATELET COUNT, AUTOMATED 324 10^3/uL (150-450); RED BLOOD COUNT 3.46 10^6/uL (4.00-5.40); WHITE BLOOD COUNT 6.8 10^3/uL (4.0-10.0)
== END ==
PROVIDERS: ATTEND Internal Medicine
DX: K92.2 Gastrointestinal hemorrhage, unspecified (principal); I82.409 Acute embolism and thrombosis of unspecified deep veins of unspecified lower extremity; Z12.10 Encounter for screening for malignant neoplasm of intestinal tract, unspecified

== ENCOUNTER → 2019-03-30 | Outpatient (REF) | payer MEDICARE, OTHER ==
[~2019-03-30] MED LIST changes: +VITA500C PO; -[UNRECOGNIZED DRUG - CODE] PO
[2019-03-30 09:59] LABS: HEMOGLOBIN 10.9 g/dl (12.0-15.5); MEAN CORPUSCULAR HEMOGLOBIN 29.1 pg (27.0-33.0); MEAN CORPUSCULAR HGB CONC 32.1 g/dl (32.0-36.5); MEAN CORPUSCULAR VOLUME 90.7 fl (80.0-96.0); PLATELET COUNT, AUTOMATED 370 10^3/uL (150-450); RED BLOOD COUNT 3.75 10^6/uL (4.00-5.40); WHITE BLOOD COUNT 7.1 10^3/uL (4.0-10.0)
[2019-03-30 10:18] LABS: BLOOD UREA NITROGEN 21 MG/DL (7-18); CALCIUM LEVEL 8.2 MG/DL (8.8-10.2); CARBON DIOXIDE LEVEL 30 MEQ/L (21-32); CHLORIDE LEVEL 102 MEQ/L (98-107); CREATININE FOR GFR 0.48 MG/DL (0.55-1.30); GLOMERULAR FILTRATION RATE > 60.0 (>32); GLUCOSE, FASTING 124 MG/DL (70-100); POTASSIUM SERUM 3.8 MEQ/L (3.5-5.1); SODIUM LEVEL 139 MEQ/L (136-145)
== END ==
PROVIDERS: ATTEND Internal Medicine
DX: I82.409 Acute embolism and thrombosis of unspecified deep veins of unspecified lower extremity (principal); K92.2 Gastrointestinal hemorrhage, unspecified; Z12.11 Encounter for screening for malignant neoplasm of colon

== ENCOUNTER → 2019-04-03 | Outpatient (REF) | payer MEDICARE, OTHER ==
[~2019-04-03] MED LIST changes: -VITA500C PO; +[UNRECOGNIZED DRUG - CODE] PO
[2019-04-03 10:26] LABS: HEMATOCRIT 34.5 % (36.0-47.0); HEMOGLOBIN 11.2 g/dl (12.0-15.5); MEAN CORPUSCULAR HGB CONC 32.5 g/dl (32.0-36.5); MEAN CORPUSCULAR VOLUME 89.4 fl (80.0-96.0); PLATELET COUNT, AUTOMATED 369 10^3/uL (150-450); RED BLOOD COUNT 3.86 10^6/uL (4.00-5.40); WHITE BLOOD COUNT 6.8 10^3/uL (4.0-10.0)
== END ==
PROVIDERS: ATTEND Internal Medicine
DX: I26.99 Other pulmonary embolism without acute cor pulmonale (principal); K92.2 Gastrointestinal hemorrhage, unspecified

== ENCOUNTER → 2019-04-06 | Outpatient (REF) | payer MEDICARE, OTHER ==
[2019-04-06 10:59] LABS: HEMATOCRIT 33.2 % (36.0-47.0); HEMOGLOBIN 10.6 g/dl (12.0-15.5); MEAN CORPUSCULAR HEMOGLOBIN 28.6 pg (27.0-33.0); MEAN CORPUSCULAR HGB CONC 31.9 g/dl (32.0-36.5); MEAN CORPUSCULAR VOLUME 89.7 fl (80.0-96.0); PLATELET COUNT, AUTOMATED 333 10^3/uL (150-450); WHITE BLOOD COUNT 7.9 10^3/uL (4.0-10.0)
== END ==
PROVIDERS: ATTEND Internal Medicine
DX: K92.2 Gastrointestinal hemorrhage, unspecified (principal)

== ENCOUNTER → 2019-04-07 | Outpatient (REF) | payer MEDICARE, OTHER ==
[~2019-04-07] MED LIST changes: +VITA500C PO; -[UNRECOGNIZED DRUG - CODE] PO
[2019-04-07 10:18] LABS: BLOOD UREA NITROGEN 22 MG/DL (7-18); CALCIUM LEVEL 8.5 MG/DL (8.8-10.2); CARBON DIOXIDE LEVEL 31 MEQ/L (21-32); CHLORIDE LEVEL 99 MEQ/L (98-107); CREATININE FOR GFR 0.48 MG/DL (0.55-1.30); GLOMERULAR FILTRATION RATE > 60.0 (>32); GLUCOSE, FASTING 133 MG/DL (70-100); POTASSIUM SERUM 3.6 MEQ/L (3.5-5.1); SODIUM LEVEL 136 MEQ/L (136-145)
== END ==
PROVIDERS: ATTEND Internal Medicine
DX: K92.2 Gastrointestinal hemorrhage, unspecified (principal)

== ENCOUNTER → 2019-04-14 | Outpatient (REF) | payer MEDICARE, OTHER ==
[2019-04-14 11:00] LABS: HEMATOCRIT 35.5 % (36.0-47.0); HEMOGLOBIN 11.3 g/dl (12.0-15.5); MEAN CORPUSCULAR HEMOGLOBIN 28.3 pg (27.0-33.0); MEAN CORPUSCULAR HGB CONC 31.8 g/dl (32.0-36.5); MEAN CORPUSCULAR VOLUME 88.8 fl (80.0-96.0); PLATELET COUNT, AUTOMATED 388 10^3/uL (150-450); WHITE BLOOD COUNT 8.4 10^3/uL (4.0-10.0)
[2019-04-14 11:20] LABS: BLOOD UREA NITROGEN 24 MG/DL (7-18); CARBON DIOXIDE LEVEL 29 MEQ/L (21-32); CHLORIDE LEVEL 102 MEQ/L (98-107); CREATININE FOR GFR 0.54 MG/DL (0.55-1.30); GLOMERULAR FILTRATION RATE > 60.0 (>32); GLUCOSE, FASTING 132 MG/DL (70-100); POTASSIUM SERUM 4.2 MEQ/L (3.5-5.1); SODIUM LEVEL 138 MEQ/L (136-145)
== END ==
PROVIDERS: ATTEND Internal Medicine
DX: K92.2 Gastrointestinal hemorrhage, unspecified (principal)

== ENCOUNTER → 2019-04-22 | Outpatient (REF) | payer MEDICARE, OTHER ==
[~2019-04-22] MED LIST changes: -VITA500C PO; +[UNRECOGNIZED DRUG - CODE] PO
[2019-04-22 09:14] LABS: HEMATOCRIT 37.3 % (36.0-47.0); HEMOGLOBIN 11.9 g/dl (12.0-15.5); MEAN CORPUSCULAR HEMOGLOBIN 27.9 pg (27.0-33.0); MEAN CORPUSCULAR HGB CONC 31.9 g/dl (32.0-36.5); MEAN CORPUSCULAR VOLUME 87.6 fl (80.0-96.0); PLATELET COUNT, AUTOMATED 408 10^3/uL (150-450); RED BLOOD COUNT 4.26 10^6/uL (4.00-5.40); WHITE BLOOD COUNT 7.4 10^3/uL (4.0-10.0)
[2019-04-22 09:27] LABS: BLOOD UREA NITROGEN 27 MG/DL (7-18); CALCIUM LEVEL 9.6 MG/DL (8.8-10.2); CARBON DIOXIDE LEVEL 29 MEQ/L (21-32); CHLORIDE LEVEL 101 MEQ/L (98-107); GLOMERULAR FILTRATION RATE > 60.0 (>32); GLUCOSE, FASTING 144 MG/DL (70-100); SODIUM LEVEL 138 MEQ/L (136-145)
== END ==
PROVIDERS: ATTEND Internal Medicine
DX: K92.2 Gastrointestinal hemorrhage, unspecified (principal)

== ENCOUNTER → 2019-04-27 | Outpatient (CLI) | payer MEDICARE, OTHER ==
--- NOTE | 2019-04-27 12:07 | REP ---
Bilateral lower extremity deep vein duplex ultrasound: Deep vein duplex ultrasound is performed from the popliteal veins to the common femoral veins bilaterally. The deep veins demonstrate incomplete compression on the right from the popliteal vein to the common femoral vein and including the proximal right deep femoral vein . On the left. There is incomplete compression from the distal femoral vein to the common femoral vein and no occlusive thrombus is identified on the right on the Impression: Nonocclusive thrombus throughout the right and left lower extremity deep veins as described. Electronically Signed by Siddharth Lerner MD 04/27/2019 11:59 A
== END ==
LOC: M RAD 10:58
PROVIDERS: ATTEND Physician Assistant
DX: I82.403 Acute embolism and thrombosis of unspecified deep veins of lower extremity, bilateral (principal)

== ENCOUNTER → 2019-04-29 | Outpatient (REF) | payer MEDICARE, BC, OTHER ==
[2019-04-28 10:16] LABS: HEMATOCRIT 40.4 % (36.0-47.0); HEMOGLOBIN 12.9 g/dl (12.0-15.5); MEAN CORPUSCULAR HEMOGLOBIN 28.6 pg (27.0-33.0); MEAN CORPUSCULAR HGB CONC 31.9 g/dl (32.0-36.5); MEAN CORPUSCULAR VOLUME 89.6 fl (80.0-96.0); PLATELET COUNT, AUTOMATED 345 10^3/uL (150-450); RED BLOOD COUNT 4.51 10^6/uL (4.00-5.40); WHITE BLOOD COUNT 8.1 10^3/uL (4.0-10.0)
[2019-04-28 10:33] LABS: BLOOD UREA NITROGEN 24 MG/DL (7-18); CALCIUM LEVEL 9.8 MG/DL (8.8-10.2); CARBON DIOXIDE LEVEL 28 MEQ/L (21-32); CHLORIDE LEVEL 99 MEQ/L (98-107); CREATININE FOR GFR 0.62 MG/DL (0.55-1.30); GLOMERULAR FILTRATION RATE > 60.0 (>32); GLUCOSE, FASTING 137 MG/DL (70-100); POTASSIUM SERUM 3.6 MEQ/L (3.5-5.1); SODIUM LEVEL 136 MEQ/L (136-145)
== END ==
PROVIDERS: ATTEND Internal Medicine
DX: K92.2 Gastrointestinal hemorrhage, unspecified (principal)

== ENCOUNTER → 2019-05-06 | Outpatient (REF) | payer MEDICARE, BC, OTHER ==
[2019-05-06 10:14] LABS: HEMATOCRIT 38.3 % (36.0-47.0); HEMOGLOBIN 12.3 g/dl (12.0-15.5); MEAN CORPUSCULAR HEMOGLOBIN 28.3 pg (27.0-33.0); MEAN CORPUSCULAR HGB CONC 32.1 g/dl (32.0-36.5); PLATELET COUNT, AUTOMATED 334 10^3/uL (150-450); RED BLOOD COUNT 4.35 10^6/uL (4.00-5.40); WHITE BLOOD COUNT 7.6 10^3/uL (4.0-10.0)
== END ==
PROVIDERS: ATTEND Internal Medicine
DX: I82.409 Acute embolism and thrombosis of unspecified deep veins of unspecified lower extremity (principal)

== ENCOUNTER → 2019-05-11 | Outpatient (CLI) | payer MEDICARE, BC, OTHER ==
--- NOTE | 2019-05-11 13:23 | REP ---
Bilateral lower extremity arterial duplex Doppler ultrasound: Right lower extremity: Brachial peak systole: 120 mmHg. Dorsalis pedis peak systole: 140 mmHg. MAINTENANCE MAN peak systole: Occluded. CHRISTOPHE: 1.1 Peak Systolic Phasicity Velocity HAM[employer]ACHINE 71.7 biphasic Profunda 55.5 biphasic SFA prox 107, 49 biphasic SFA mid 73, 91 biphasic SFA dist 77.4 biphasic Pop 870.9 biphasic KAREEN prox 44.3 monophasic Tib/P tr 39.4 biphasic MAINTENANCE MAN pr 62 biphasic MAINTENANCE MAN dst occluded -- KAREEN dst 46.8 biphasic Left lower extremity: Brachial peak systole: 130 mmHg. Dorsalis pedis peak systole: 100 mmHg. MAINTENANCE MAN peak systole 120 mmHg. CHRISTOPHE: 0.9. Peak Systolic Phasicity Velocity HAMPER [employer] MACHINE 92.5 biphasic Profunda 61.3 biphasic SFA prox 55, 95 biphasic SFA mid 77, 51 biphasic SFA dist 58.4 biphasic Pop 22.7 monophasic KAREEN prox 19.7 monophasic Tib/P tr 19.9 monophasic MAINTENANCE MAN pr 30.5 monophasic MAINTENANCE MAN dst 24.8 monophasic KAREEN dst 9.2 monophasic There is calcified and noncalcified plaque bilaterally. There is predominately biphasic flow in the right lower extremity. In the left lower extremity there is biphasic flow proximally and monophasic flow distally. There is mild stenosis at the proximal SFAs bilaterally. There is distal occlusion in the right MAINTENANCE MAN. There is very slow flow in the left KAREEN. Electronically Signed by Siddharth Lerner MD 05/11/2019 01:15 P
== END ==
LOC: M RAD 08:58
PROVIDERS: ATTEND Physician Assistant
DX: I70.213 Atherosclerosis of native arteries of extremities with intermittent claudication, bilateral legs (principal)

== ENCOUNTER → 2019-05-12 | Outpatient (REF) | payer MEDICARE, BC, OTHER ==
[2019-05-12 09:24] LABS: HEMATOCRIT 36.9 % (36.0-47.0); HEMOGLOBIN 11.8 g/dl (12.0-15.5); MEAN CORPUSCULAR HEMOGLOBIN 27.6 pg (27.0-33.0); MEAN CORPUSCULAR VOLUME 86.4 fl (80.0-96.0); PLATELET COUNT, AUTOMATED 319 10^3/uL (150-450); RED BLOOD COUNT 4.27 10^6/uL (4.00-5.40)
== END ==
PROVIDERS: ATTEND Physician Assistant
DX: K92.2 Gastrointestinal hemorrhage, unspecified (principal)

== ENCOUNTER → 2019-05-19 | Outpatient (POV) | payer MEDICARE, BC, OTHER ==
[~2019-05-19] VITALS: Ht 165.1 cm; Wt 73.6 kg
[2019-05-19 09:00] VITALS: BP 126/69
--- NOTE | 2019-05-19 14:21 | IRCOV ---
[facility] IR Consult Office Visit IR Consult Office Visit DATE: May 19, 2019 REASON FOR CONSULTATION/CHIEF COMPLAINT: Left leg wound. Abnormal extremity ultrasound. HISTORY OF PRESENT ILLNESS: 88-year-old female with history of DVT and PE and prior IVC filter placement is now on Xarelto and doing well. No risk of falls. No recent hemorrhage. No further indication for IVC filter. History of left leg wound 6 weeks ago which has healed. No leg pain. No intermittent claudication. No rest pain. No history of cold leg or gangrene. No amputations. Nonsmoker. No diabetes. ALLERGIES: Please see below. HOME MEDICATIONS: Please see below. PAST MEDICAL HISTORY: GERD PE DVT Hiatal hernia PAST SURGICAL HISTORY: Knee replacement IVC filter placement March 2019. Left lower extremity hardware. FAMILY HISTORY: Nonsignificant. SOCIAL HISTORY: Lives in assisted living. Nonsmoker. No alcohol or drugs. REVIEW OF SYSTEMS: Otherwise negative. PHYSICAL EXAMINATION: VITAL SIGNS: Please see below. GENERAL APPEARANCE: Appears well. Comfortable at rest. HEENT: No scleral icterus. RESPIRATORY: Symmetric breath sounds. CARDIOVASCULAR: Normal rate. ABDOMEN: Soft nontender. EXTREMITIES: Left lower extremity: Edema 2+. Compression dressing to the knees. Stockings. Skin warm to touch. Toes warm. Femoral pulse 2+ popliteal pulse 2+ Right lower extremity: Edema 2+ compression dressing to knees and stockings. Skin warm to touch. Toes warm. Femoral pulse 2+ popliteal pulse 2+. NEUROLOGICAL: Nonweightbearing. Bilateral lower extremity weakness motor 2 out of 5, worse on left. Patchy sensory loss. Chronic. PSYCHIATRIC: Appropriate to circumstance. LABORATORY DATA: Please see below. Imaging: I personally reviewed the ultrasound of the bilateral lower extremities from April 2019. The right common femoral, profunda femoris, SFA, popliteal artery and runoff vessels are patent. There is biphasic waveform throughout the right lower extremity. The left common femoral, profunda, SFA and popliteal are patent. However there are monophasic waveforms in the popliteal artery and the run off vessels. I also reviewed the fluoroscopy images from March 2019. There is an inferior vena cava filter. ASSESSMENT/PLAN: 88 female with history of posttraumatic left lower extremity wound which healed with hematoma evacuation and debridement. No rest pain. No history of cold leg. At this time I would continue to monitor for any developing lower extremity signs, there is no indication of critical limb ischemia or symptoms of peripheral arterial disease. However, if patient develops symptoms or nonhealing wounds I would do angiogram and possible intervention. However, I do think we need to remove the IVC filter now as it is not indicated any longer and patient is successfully on Xarelto. I will schedule the patient for IVC filter removal. I spent 30 minutes in consultation with the patient. Thank you for this referral. Allergies Coded Allergies: Penicillins (Verified Allergy, Intermediate, Hives and Rash, 03/17/19) Sulfa (Sulfonamide Antibiotics) (Verified Allergy, Intermediate, Rash and Hives, 03/17/19) morphine (Verified Allergy, Unknown, Nausea, 03/17/19) Home Medications Scheduled Cholecalciferol (Vitamin D3) (Vitamin D3), 2,000 UNIT PO Q2D, (Reported) Ciprofloxacin HCl (Cipro), 250 MG PO BID@ Cranberry Fruit Extract (Cranberry), 2,000 MG PO DAILY, (Reported) Ferrous Gluconate (Ferrous Gluconate), 324 MG PO DAILY, (Reported) Furosemide (Furosemide), 40 MG PO DAILY, (Reported) Lactose-Reduced Food (Ensure Liquid), 237 ML PO DAILY, (Reported) Melatonin (Melatonin), 5 MG PO QHS, (Reported) Metronidazole (Flagyl), 500 MG PO Q8H Multivit-Min/FA/Lycopen/Lutein (Certavite Sr-Antioxidant Tab), 1 TAB PO DAILY, (Reported) Pantoprazole Sodium (Pantoprazole Sodium), 40 MG PO BID Potassium Chloride (Potassium Chloride), 20 MEQ PO DAILY, (Reported) Sennosides/Docusate Sodium (Senna-S Tablet), 1 TAB PO QHS, (Reported) Solifenacin Succinate (Vesicare), 5 MG PO DAILY, (Reported) Sucralfate (Sucralfate), 1 GM PO ACHS Scheduled PRN Acetaminophen (Acetaminophen), 650 MG PO Q4HP PRN for PAIN OR FEVER, (Reported) Bisacodyl (Bisacodyl), 10 MG [place] DAILY PRN for CONSTIPATION, (Reported) Magnesium Hydroxide (Milk of Magnesia), 2,400 MG PO DAILY PRN for CONSTIPATION, (Reported) Sodium Phosphate,[place]-Dibasic (Fleet Enema), 1 PABLO [place] DAILY PRN for CONSTIPATION, (Reported) VS, I&O, 24H, Fishbone Vital Signs/I&O Vital Signs Date Time Temp Pulse Resp B/P (MAP) Pulse Ox O2 Delivery O2 Flow Rate FiO2 05/19/19 09:00 97.2 92 16 126/69 (88) 93 ANASTASIA PALMA MD May 19, 2019 14:21
== END ==
LOC: M IRPOV 08:17
PROVIDERS: ATTEND Radiology Diagnostic Radiology
DX: R93.6 Abnormal findings on diagnostic imaging of limbs (principal); Z86.718 Personal history of other venous thrombosis and embolism; Z79.01 Long term (current) use of anticoagulants; Z95.828 Presence of other vascular implants and grafts; K21.9 Gastro-esophageal reflux disease without esophagitis; K44.9 Diaphragmatic hernia without obstruction or gangrene

== ENCOUNTER → 2019-05-26 | Outpatient (REF) | payer MEDICARE, BC, OTHER ==
[2019-05-26 08:56] LABS: HEMATOCRIT 37.8 % (36.0-47.0); HEMOGLOBIN 12.2 g/dl (12.0-15.5); MEAN CORPUSCULAR HEMOGLOBIN 27.7 pg (27.0-33.0); MEAN CORPUSCULAR HGB CONC 32.3 g/dl (32.0-36.5); MEAN CORPUSCULAR VOLUME 85.7 fl (80.0-96.0); PLATELET COUNT, AUTOMATED 332 10^3/uL (150-450); RED BLOOD COUNT 4.41 10^6/uL (4.00-5.40); WHITE BLOOD COUNT 6.9 10^3/uL (4.0-10.0)
[2019-05-26 09:27] LABS: BLOOD UREA NITROGEN 26 MG/DL (7-18); CALCIUM LEVEL 9.7 MG/DL (8.8-10.2); CARBON DIOXIDE LEVEL 32 MEQ/L (21-32); CHLORIDE LEVEL 99 MEQ/L (98-107); CREATININE FOR GFR 0.75 MG/DL (0.55-1.30); GLOMERULAR FILTRATION RATE > 60.0 (>32); GLUCOSE, FASTING 135 MG/DL (70-100); POTASSIUM SERUM 3.9 MEQ/L (3.5-5.1); SODIUM LEVEL 138 MEQ/L (136-145)
[2019-05-26 10:51] LABS: TOTAL 25(OH) VITAMIN D 48.5 NG/ML (30.0-100.0)
== END ==
PROVIDERS: ATTEND Internal Medicine
DX: K92.2 Gastrointestinal hemorrhage, unspecified (principal); Z79.899 Other long term (current) drug therapy

== ENCOUNTER → 2019-06-01 | Outpatient (CLI) | payer MEDICARE, BC, OTHER ==
[~2019-06-01] MED LIST changes: +ISOVUE-300 61% 50ML VIAL (Q9967) As Ordered ONE; +LIDOCAINE 1% MDV 20ML VIAL As Ordered ONE; +MIDAZOLAM INJ 2 MG/2 ML VIAL (J2250) As Ordered ONE; +diphenhydrAMINE INJ 50MG/ML VIAL (J1200) As Ordered ONE; +fentaNYL 100 MCG/2 ML INJECTION (J3010) As Ordered ONE
--- NOTE | 2019-06-01 15:04 | REP ---
IR IVC filter retrieval. Ultrasound of the right neck. IR moderate sedation. IR venogram. Clinical information: The patient had an IVC filter placed at time of hip fracture for deep vein thrombosis for which she could not be anticoagulated. The patient has since recovered and started Xarelto successfully. Filter removal indicated. Physician: Dr. Saenz. Procedure: The patient was advised of the benefits, risks and alternatives of the procedure and informed consent was obtained. The time-out was performed with verification of the patient's name, MRN, site of procedure and type of procedure to be performed. The patient was positioned in the supine position on the angiographic table. The site was prepped and draped in the usual sterile fashion. Moderate sedation was performed by the physician including the presence of an independent trained observer who assisted in monitoring the patient's level of consciousness and physiologic status. Following the administration of Fentanyl and Versed, the physician spent 45 minutes of continuous face to face time with the patient. A warp coiler radiograph reveals a filter at L2. Ultrasound of the right neck demonstrates a patent and compressible right internal jugular vein. The anticipated puncture site was anesthetized with lidocaine. Under ultrasound guidance, a micro introducer a needle was used to access the right internal jugular vein. An 018 wire was advanced into the superior vena cava. The needle was then exchanged for a 4-Russian micro introducer sheath. The inner dilator and wire were removed and an 035 Amplatz wire was placed into the inferior vena cava. The micro introducer sheath was then removed. The filter retrieval kit sheath was then advanced over the wire under fluoroscopy guidance, beyond the IVC filter, into the right common iliac vein. An inferior vena cava venogram was performed demonstrating a patent inferior vena cava with bilateral renal vein inflow artifact. The left common iliac vein is patent. Inflow from the right common iliac vein is also noted. No evidence of thrombus within the indwelling inferior vena cava filter is noted. The indwelling IVC filter was then snared using an Ensnare and retracted into the sheath. Sheath, filter and snare were removed, pressure held and hemostasis achieved. A sterile dressing was applied to the site. A follow-up radiograph confirms removal of the filter. The filter was removed in its entirety on the table. The patient tolerated the procedure well and was returned to the PRU in stable condition. EBL: Less than 5 ml. Complications: None. Conclusion: 1. Unremarkable inferior venacavagram. 2. Successful IVC filter retrieval as described above. Thank you for this referral. Electronically Signed by Farideh Saenz MD 06/01/2019 03:03 P
[2019-06-01 15:30] VITALS: BP 110/56
--- NOTE | 2019-06-02 14:34 | POST-OPPD ---
Postoperative Procedure Note Date Of Procedure: Jun 02, 2019 Time Of Procedure: 14:34 please see full report under imaging tab ANASTASIA PALMA MD Jun 02, 2019 14:34
== END ==
LOC: M IRPRO 11:24
PROVIDERS: ATTEND Radiology Diagnostic Radiology
DX: Z45.89 Encounter for adjustment and management of other implanted devices (principal); Z86.718 Personal history of other venous thrombosis and embolism; Z79.01 Long term (current) use of anticoagulants
CPT/HCPCS: 37193; 99152; 99153; C1769; C1773; C1894; J2250; J3010; Q9967

== ENCOUNTER → 2019-06-30 | Outpatient (REF) | payer MEDICARE, BC, OTHER ==
[~2019-06-30] MED LIST changes: -ISOVUE-300 61% 50ML VIAL (Q9967) As Ordered ONE; -LIDOCAINE 1% MDV 20ML VIAL As Ordered ONE; -MIDAZOLAM INJ 2 MG/2 ML VIAL (J2250) As Ordered ONE; -diphenhydrAMINE INJ 50MG/ML VIAL (J1200) As Ordered ONE; -fentaNYL 100 MCG/2 ML INJECTION (J3010) As Ordered ONE
[2019-06-30 10:01] LABS: HEMATOCRIT 35.7 % (36.0-47.0); HEMOGLOBIN 11.2 g/dl (12.0-15.5); MEAN CORPUSCULAR HEMOGLOBIN 27.5 pg (27.0-33.0); MEAN CORPUSCULAR HGB CONC 31.4 g/dl (32.0-36.5); MEAN CORPUSCULAR VOLUME 87.7 fl (80.0-96.0); PLATELET COUNT, AUTOMATED 303 10^3/uL (150-450); RED BLOOD COUNT 4.07 10^6/uL (4.00-5.40); WHITE BLOOD COUNT 6.5 10^3/uL (4.0-10.0)
[2019-06-30 10:23] LABS: BLOOD UREA NITROGEN 22 MG/DL (7-18); CALCIUM LEVEL 9.1 MG/DL (8.8-10.2); CARBON DIOXIDE LEVEL 32 MEQ/L (21-32); CHLORIDE LEVEL 98 MEQ/L (98-107); CREATININE FOR GFR 0.75 MG/DL (0.55-1.30); GLOMERULAR FILTRATION RATE > 60.0 (>32); GLUCOSE, FASTING 140 MG/DL (70-100); SODIUM LEVEL 137 MEQ/L (136-145)
== END ==
PROVIDERS: ATTEND Internal Medicine
DX: K92.2 Gastrointestinal hemorrhage, unspecified (principal)